=== PATIENT | male | born 1945 | race Caucasian/White ===

== ENCOUNTER → 2017-08-15 13:44 | Outpatient (CLI) | payer MEDICARE, OTHER, SELFPAY ==
[2017-08-15 14:02] LABS: Add Manual Diff / Slide Review NO; Eosinophils Percent Auto 3.7 % (2-4); Hematocrit 37.2 % (41-53); Hemoglobin 13.1 g/dL (13.5-17.5); Lymphocytes Percent Auto 20.4 % (25-40); Mean Corpuscular HGB Conc 35.2 % (30-36); Mean Corpuscular Hemoglobin 36.7 PG (26-34); Mean Corpuscular Volume 104.5 fL (80-100); Monocytes Percent Auto 13.9 % (3-14); Neutrophils Absolute Auto 2500 /uL (3000-5900); Platelet Count 98 X10^3/uL (150-400); Red Blood Cell Count 3.55 X10^6/uL (4.5-5.9); Red Cell Distribution Width 15.9 % (11.6-14.8); White Blood Cell Count 4.1 X10^3/uL (4.5-11.0)
[2017-08-15 14:28] LABS: Alanine Aminotransferase 39 IU/L (21-72); Albumin 2.5 g/dL (3.5-5.0); Albumin Globulin Ratio 0.5 (1.0-2.8); Alkaline Phosphatase 295 U/L (38-126); Aspartate Aminotransferase 102 IU/L (17-59); BUN Creatinine Ratio 27.8 (6-22); Bilirubin Total 2.7 mg/dL (0.2-1.3); Calcium 8.1 mg/dL (8.4-10.2); Estimated Glomerular Filt Rate > 60.0 mL/min (>60); Globulin 5.3 g/dL (1.7-4.1); Glucose 156 mg/dL (80-110); HEMOLYSIS < 15 (0-50); Potassium 4.5 mmol/L (3.4-5.1); Sodium 131 mmol/L (137-145); Total Protein 7.8 g/dL (6.3-8.2)
[2017-08-19 15:44] LABS: Alpha Fetoprotein 6.6 ng/mL (< 6.1)
[2017-08-19 16:00] LABS: Cancer (Carbohydrate) Ag 19-9 56 U/mL (< 34)
--- NOTE | 2017-08-22 13:21 | PC.NURSE ---
Pt called today c/o my belly is filling up with fluid again and I need it drained. Noted pt has appt with Dr Pope on 08/27, however pt states he can't wait until Friday. There isn't a standing order for paracentesis to be done. Pt states he needs it done today. Explained to patient that Dr Pope isn't here and he is the provider that is familiar with pt and has evaluated pt. Instructed pt that if he can't wait until Friday, he will need to go to ER if he becomes too uncomfortable. Verbalized understanding and states he will go to ER.
== END ==
PROVIDERS: PCP Physician Assistant; Visit Provider Internal Medicine Hematology & Oncology
DX: C22.0 Liver cell carcinoma (principal); B19.20 Unspecified viral hepatitis C without hepatic coma
CPT/HCPCS: 36415; 80053; 82105; 85025; 86301

== ENCOUNTER 2017-09-09 19:23 | Observation (INO) | payer MEDICARE, OTHER, SELFPAY ==
--- NOTE | 2017-09-09 19:36 | DI.CT.S_ITS ---
PROCEDURE: CT HEAD/BRAIN WO CON INDICATIONS: Dizzy and slurred speech TECHNIQUE: Noncontrast 4.5 mm thick angled axial sections acquired from the foramen magnum to the vertex, with coronal and sagittal reformats. For radiation dose reduction, the following was used: automated exposure control, adjustment of mA and/or kV according to patient size. COMPARISON: None. FINDINGS: Image quality: Excellent. CSF spaces: Basal cisterns are patent. No extra-axial fluid collections. The ventricles are symmetric in size and shape. Brain: No intracranial bleeds or masses. There is cerebral volume loss for age, with resultant ventricular and sulcal prominence. There are periventricular and deep white matter chronic small vessel ischemic changes. There is intracranial internal carotid artery atherosclerosis. Skull and face: Calvarium and visualized facial bones appear intact, without suspicious lesions. Sinuses: Visualized sinuses and mastoids are clear. IMPRESSION: A no mass identified, source of current symptoms is not seen. Dictated by: Michael Cheney M.D. on 09/09/2017 at 20:43 Approved by: Michael Cheney M.D. on 09/09/2017 at 20:43
[2017-09-09 19:47] VITALS: BP 101/57; PULSE 91; RESP 20; TEMP 37.2; O2SAT 95; BMI 22.1
--- NOTE | 2017-09-09 19:50 | ED.NEUROSD ---
HPI - Neuro Symptoms/Deficit General Chief Complaint: Neuro Symptoms/Deficit Stated Complaint: DIZZY,INCOHERENT,SOMETHING ABOUT A RED SPOT Time Seen by Provider: 09/09/17 19:35 Source: patient and other (Friend) Mode of arrival: ambulatory Limitations: no limitations History of Present Illness HPI Narrative: 72-year-old male with a history of hepatocellular carcinoma here for evaluation of ???dizziness??? patient cannot define it any more than this. He cannot distinguish whether not it is a room spinning sensation or lightheaded sensation. He seems to think that the onset was approximately 330 this afternoon however the friend at bedside thinks that maybe it was earlier than that. Was also some concern from the friend at bedside that the patient was ???slower ???than normal with regard to his speech. Patient is followed by a an oncologist at [facility]. Patient's friend states that the last time he took him to the [facility] was in March of last year. Patient states that he went down approximately a week ago. Difficult to obtain some history however patient states that he is taking lactulose 3 times a day. It does not appear that he is under any sort of chemotherapy or radiation for his cancer. Patient also with a history of hepatitis which led to the hepatocellular carcinoma. Does get occasional paracentesis with the last 1 performed approximately 7 days ago at [facility]. Patient and friend state that he does not get scheduled paracenteses. On Anticoagulants: No Related Data Home Medications Medication Instructions Recorded Confirmed furosemide 20 mg PO QDAY #0 07/21/17 spironolactone 100 mg PO QDAY #0 07/21/17 Previous Rx's Medication Instructions Recorded hydrocodone-acetaminophen 1 tab PO Q6HP PRN #120 tab 07/08/17 Disabled Parking Permit ea #1 07/21/17 omeprazole 20 mg PO Q DAY #90 cap 07/21/17 lactulose 10 gram/15 mL oral 10 gram PO QID #900 ml 09/09/17 solution Allergies Allergy/AdvReac Type Severity Reaction Status Date / Time Penicillins [PENICILLINS] Allergy Unknown PATIENT Verified 09/09/17 19:49 CAN'T REMEMBER I WAS LIKE 6 YEARS OLD. Review of Systems Constitutional Denies chills, Reports fatigue, Denies fever(s), Denies frequent falls, Denies headache(s), Reports lethargy and Reports weakness Eyes Comments: Patient does state that he has blurry vision and double vision however he also states that he has ???dizziness ??? ENT Ears, Nose, Mouth, and Throat: Denies vertigo, Reports dizziness, Denies headache(s), Denies hearing loss, Denies lip swelling, Denies sinus pressure and Denies sore throat Cardiovascular Denies chest pain, Denies irregular heart rhythm, Denies lightheadedness, Denies palpitations, Denies dyspnea, Denies dyspnea on exertion and Denies orthopnea Respiratory Denies cough, Denies dyspnea, Denies dyspnea on exertion and Denies wheezing Gastrointestinal Gastrointestinal: Denies abdominal pain, Denies change in bowel habits, Denies diarrhea, Denies nausea and Denies vomiting Genitourinary Denies hematuria, Denies flank pain, Denies urinary incontinence and Denies urinary urgency Musculoskeletal Denies abnormal gait, Denies back pain, Denies muscle weakness, Denies numbness and Denies tingling Integumentary/Breasts Denies pruritus, Denies erythema, Denies rash and Denies wounds Neurologic Denies abnormal movements, Reports abnormal speech, Denies abnormal gait, Denies confusion, Denies vertigo, Reports dizziness, Denies frequent falls, Denies headache(s), Denies lack of coordination, Denies numbness, Reports other visual disturbances, Denies convulsions, Denies sensory deficit, Denies tingling and Reports weakness Psychiatric Denies confusion Endocrine Reports fatigue and Denies palpitations Hematologic/Lymphatic Denies easy bruising Allergic/Immunologic Denies lip swelling and Denies wheezing [facility] Social History Smoking Status: Never smoker Exam Initial Vital Signs Initial Vital Signs: Vital Signs Temperature 99.0 F 09/09/17 19:47 Pulse Rate 91 H 09/09/17 19:47 Respiratory Rate 20 09/09/17 19:47 Blood Pressure 101/57 L 09/09/17 19:47 Pulse Oximetry 95 09/09/17 19:47 Const General: cooperative, comfortable and No in distress Nutritional Appearance: well nourished Orientation: alert, awake, oriented x3 and not confused HENMT Head: normocephalic and atraumatic Ears: external ears normal and TM's normal bilaterally Nose: external nose normal and No nasal discharge Face and sinus: sinuses nontender, face symmetric and No dry mucous membranes Mouth: oral mucosae normal and moist mucous membranes Teeth and gingiva: dentition normal Throat: tonsils normal and uvula midline Eyes General: appearance normal, both eyes and all related structures Eyelids: eyelids normal Conjunctivae: conjunctivae normal Sclera: sclerae normal Pupils: PERRL EOM: EOM intact bilaterally Resp Effort & Inspection: normal respiratory effort, able to speak in complete sentences, no respiratory distress and no use of accessory muscles Auscultation: clear to auscultation bilaterally, no rales, no rhonchi and no wheezes Cardio Rate: regular rate Rhythm: regular rhythm Heart Sounds: no click, no gallops, no murmurs and no rubs Pulses: normal peripheral pulses GI Palpation: soft, no hepatosplenomegaly, No firm, No guarding, No pulsatile mass, No tender and ascites Skin General: no rashes or lesions noted, No jaundice and No petechiae Neuro General: alert, awake, oriented x3, gait normal, moves all extremities, no focal motor deficits and CN's II-XI intact bilaterally Cranial Nerves: CN's II-XI intact bilaterally, PERRL and EOM intact bilaterally Speech: speech normal (However does answer questions slowly) Gait: normal gait (However is slow) Motor: muscle tone normal throughout, strength 5/5 throughout and no pronator drift Sensory Exam: no sensory deficits noted Extrem General: full ROM, no clubbing, cyanosis or edema, no pedal edema and no calf tenderness Psych Appearance: grossly normal Mental Status: mental status grossly normal Attitude: cooperative Course Orders Ordered: ED Orders 09/09/17 19:36 CT head/brain wo con Stat EKG-12 Lead Stat 09/09/17 19:40 Basic Metabolic Panel Stat Complete Blood Count AUTO DIFF Stat Hepatic (Liver) Panel Stat Lipase Stat Partial Thromboplastin Time Stat Prothrombin Time INR Stat Troponin I Stat 09/09/17 20:23 Ammonia (NH3) Stat Lactate (Lactic Acid) Stat 09/09/17 22:38 Consult to Physician Routine 09/10/17 06:00 Troponin I Stat Discontinued Medications Aspirin (Aspirin Chew) 324 mg PO NOW ONE Stop: 09/09/17 20:20 Last Admin: 09/09/17 20:33 Dose: 324 mg Sodium Chloride (Normal Saline 0.9%) 1,000 mls @ 500 mls/hr IV BOLUS ONE Stop: 09/09/17 21:59 Last Admin: 09/09/17 20:33 Dose: 500 mls/hr Vital Signs - 8 hr 09/09/17 19:47 Temperature 99.0 F Pulse Rate 91 H Respiratory Rate 20 Blood Pressure 101/57 L Pulse Oximetry 95 MDM - Neuro Symptoms/Deficit Medical Records Attestation: I reviewed the patient's medical records. Lab Data Attestation: I reviewed the patient's lab results. Result diagrams: 09/09/17 19:40 09/09/17 19:40 Lab Results 09/09/17 09/09/17 09/09/17 Range/Units 19:40 19:40 19:40 WBC 5.9 (4.5-11.0) X10^3/uL RBC 3.66 L (4.5-5.9) X10^6/uL Hgb 13.3 L (13.5-17.5) g/dL Hct 38.0 L (41-53) % MCV 103.9 H (80-100) fL MCH 36.4 H (26-34) PG MCHC 35.1 (30-36) % RDW 15.7 H (11.6-14.8) % Plt Count 104 L (150-400) X10^3/uL Neut % (Auto) 67.3 (50-75) % Lymph % (Auto) 14.4 L (25-40) % Troup % (Auto) 16.3 H (3-14) % Eos % (Auto) 1.0 L (2-4) % Baso % (Auto) 1.0 (0-2) % Neut # (Auto) 4000 (7717-1751) /uL PT 16.8 H (10.1-12.7) SECONDS INR 1.6 H (0.9-1.3) APTT 41 H (26.4-36.2) SECONDS Sodium 137 (137-145) mmol/L Potassium 4.3 (3.4-5.1) mmol/L Chloride 105 (98-107) mmol/L Carbon Dioxide 19 L (22-32) mmol/L BUN 52 H (9-20) mg/dL Creatinine 1.50 H (0.66-1.25) mg/dL Estimated GFR 46.1 L (>60) mL/min BUN/Creatinine Ratio 34.7 H (6-22) Glucose 132 H (80-110) mg/dL Lactate (0.7-2.1) mmol/L Calcium 8.7 (8.4-10.2) mg/dL Total Bilirubin 3.5 H (0.2-1.3) mg/dL Conjugated Bilirubin 0.0 (0.0-0.3) md/dL Unconjugated Bilirubin 2.2 H (0.0-1.1) mg/dL AST 96 H (17-59) IU/L ALT 45 (21-72) IU/L Alkaline Phosphatase 178 H (38-126) U/L Ammonia (9-30) umol/L Troponin I 0.053 H (0.01-0.034) ng/mL Total Protein 8.1 (6.3-8.2) g/dL Albumin 2.6 L (3.5-5.0) g/dL Globulin 5.5 H (1.7-4.1) g/dL Albumin/Globulin Ratio 0.5 L (1.0-2.8) Lipase 272 (23-300) U/L 09/09/17 09/09/17 Range/Units 20:23 20:23 WBC (4.5-11.0) X10^3/uL RBC (4.5-5.9) X10^6/uL Hgb (13.5-17.5) g/dL Hct (41-53) % MCV (80-100) fL MCH (26-34) PG MCHC (30-36) % RDW (11.6-14.8) % Plt Count (150-400) X10^3/uL Neut % (Auto) (50-75) % Lymph % (Auto) (25-40) % Troup % (Auto) (3-14) % Eos % (Auto) (2-4) % Baso % (Auto) (0-2) % Neut # (Auto) (3081-3903) /uL PT (10.1-12.7) SECONDS INR (0.9-1.3) APTT (26.4-36.2) SECONDS Sodium (137-145) mmol/L Potassium (3.4-5.1) mmol/L Chloride (98-107) mmol/L Carbon Dioxide (22-32) mmol/L BUN (9-20) mg/dL Creatinine (0.66-1.25) mg/dL Estimated GFR (>60) mL/min BUN/Creatinine Ratio (6-22) Glucose (80-110) mg/dL Lactate 2.8 H (0.7-2.1) mmol/L Calcium (8.4-10.2) mg/dL Total Bilirubin (0.2-1.3) mg/dL Conjugated Bilirubin (0.0-0.3) md/dL Unconjugated Bilirubin (0.0-1.1) mg/dL AST (17-59) IU/L ALT (21-72) IU/L Alkaline Phosphatase (38-126) U/L Ammonia 64.0 H (9-30) umol/L Troponin I (0.01-0.034) ng/mL Total Protein (6.3-8.2) g/dL Albumin (3.5-5.0) g/dL Globulin (1.7-4.1) g/dL Albumin/Globulin Ratio (1.0-2.8) Lipase (23-300) U/L Imaging Data CT scan - head: Radiologist's impression: PROCEDURE: CT HEAD/BRAIN WO CON INDICATIONS: Dizzy and slurred speech TECHNIQUE: Noncontrast 4.5 mm thick angled axial sections acquired from the foramen magnum to the vertex, with coronal and sagittal reformats. For radiation dose reduction, the following was used: automated exposure control, adjustment of mA and/or kV according to patient size. COMPARISON: None. FINDINGS: Image quality: Excellent. CSF spaces: Basal cisterns are patent. No extra-axial fluid collections. The ventricles are symmetric in size and shape. Brain: No intracranial bleeds or masses. There is cerebral volume loss for age, with resultant ventricular and sulcal prominence. There are periventricular and deep white matter chronic small vessel ischemic changes. There is intracranial internal carotid artery atherosclerosis. Skull and face: Calvarium and visualized facial bones appear intact, without suspicious lesions. Sinuses: Visualized sinuses and mastoids are clear. IMPRESSION: A no mass identified, source of current symptoms is not seen. Dictated by: Michael Cheney M.D. on 09/09/2017 at 20:43 ECG Data Attestation: I personally reviewed and interpreted this ECG as follows: Prior ECG tracings: not available for review Interpretation: Time 1941 hr Sinus rhythm Normal axis Ventricular rate 81 Normal QRS QTC 402 milliseconds Occasional PACs Nonspecific ST T wave changes MDM Narrative Medical decision making narrative: Patient with a elevated ammonia level however is alert and oriented to person and place however had some confusion with time. Does have a elevated troponin however no ST elevations on the EKG. Was given aspirin here in the emergency department. Patient states that he is taking his lactulose at home. And did take it today. In review of his prior notes it appears that he is not a candidate for treatment of his hepatocellular carcinoma. Is not currently under radiation or chemotherapy. Discussed the case with Dr. Keith who will admit for observation status for trending troponin. Discharge Plan Departure Patient Disposition: Admitted as Observation Clinical Impression: Hepatocellular carcinoma, Elevated troponin I level, Fatigue
--- NOTE | 2017-09-09 19:56 | PC.NURSE ---
Fatigue/confusion worsening over several days, family reports mulitple similar episodes in the past r/t liver failure, pt drowsy, rouses easily to voice, oriented x3, denies trauma/vomiting/diarrhea/headache/abd pain/cp/soa, c/o just tired, delayed speech, moving all ext, able to stand with sba, abd distended, nontender
[2017-09-09 19:57] LABS: Add Manual Diff / Slide Review NO; Hemoglobin 13.3 g/dL (13.5-17.5); Lymphocytes Percent Auto 14.4 % (25-40); Mean Corpuscular HGB Conc 35.1 % (30-36); Mean Corpuscular Hemoglobin 36.4 PG (26-34); Mean Corpuscular Volume 103.9 fL (80-100); Monocytes Percent Auto 16.3 % (3-14); Neutrophils Absolute Auto 4000 /uL (3000-5900); Neutrophils Percent Auto 67.3 % (50-75); Platelet Count 104 X10^3/uL (150-400); Red Blood Cell Count 3.66 X10^6/uL (4.5-5.9); Red Cell Distribution Width 15.7 % (11.6-14.8); White Blood Cell Count 5.9 X10^3/uL (4.5-11.0)
--- NOTE | 2017-09-09 19:57 | ED_ITS ---
HPI - Neuro Symptoms/Deficit General Chief Complaint: Neuro Symptoms/Deficit Stated Complaint: DIZZY,INCOHERENT,SOMETHING ABOUT A RED SPOT Time Seen by Provider: 09/09/17 19:35 Source: patient and other (Friend) Mode of arrival: ambulatory Limitations: no limitations History of Present Illness HPI Narrative: 72-year-old male with a history of hepatocellular carcinoma here for evaluation of ?dizziness? patient cannot define it any more than this. He cannot distinguish whether not it is a room spinning sensation or lightheaded sensation. He seems to think that the onset was approximately 330 this afternoon however the friend at bedside thinks that maybe it was earlier than that. Was also some concern from the friend at bedside that the patient was ? slower ?than normal with regard to his speech. [facility] Patient's friend states that the last time he took him to the [facility] was in March of last year. Patient states that he went down approximately a week ago. Difficult to obtain some history however patient states that he is taking lactulose 3 times a day. It does not appear that he is under any sort of chemotherapy or radiation for his cancer. Patient also with a history of hepatitis which led to the hepatocellular carcinoma. Does get occasional paracentesis with the last 1 performed approximately 7 days ago at [facility] Emergency Department. Patient and friend state that he does not get scheduled paracenteses. On Anticoagulants: No Related Data Home Medications Medication Instructions Recorded Confirmed furosemide 20 mg PO QDAY #0 07/21/17 spironolactone 100 mg PO QDAY #0 07/21/17 Previous Rx's Medication Instructions Recorded hydrocodone-acetaminophen 1 tab PO Q6HP PRN #120 tab 07/08/17 Disabled Parking Permit ea #1 07/21/17 omeprazole 20 mg PO Q DAY #90 cap 07/21/17 lactulose 10 gram/15 mL oral 10 gram PO QID #900 ml 09/09/17 solution Allergies Allergy/AdvReac Type Severity Reaction Status Date / Time Penicillins [PENICILLINS] Allergy Unknown PATIENT Verified 09/09/17 19:49 CAN'T REMEMBER I WAS LIKE 6 YEARS OLD. Review of Systems Constitutional Denies chills, Reports fatigue, Denies fever(s), Denies frequent falls, Denies headache(s), Reports lethargy and Reports weakness Eyes Comments: Patient does state that he has blurry vision and double vision however he also states that he has ?dizziness ? ENT Ears, Nose, Mouth, and Throat: Denies vertigo, Reports dizziness, Denies headache(s), Denies hearing loss, Denies lip swelling, Denies sinus pressure and Denies sore throat Cardiovascular Denies chest pain, Denies irregular heart rhythm, Denies lightheadedness, Denies palpitations, Denies dyspnea, Denies dyspnea on exertion and Denies orthopnea Respiratory Denies cough, Denies dyspnea, Denies dyspnea on exertion and Denies wheezing Gastrointestinal Gastrointestinal: Denies abdominal pain, Denies change in bowel habits, Denies diarrhea, Denies nausea and Denies vomiting Genitourinary Denies hematuria, Denies flank pain, Denies urinary incontinence and Denies urinary urgency Musculoskeletal Denies abnormal gait, Denies back pain, Denies muscle weakness, Denies numbness and Denies tingling Integumentary/Breasts Denies pruritus, Denies erythema, Denies rash and Denies wounds Neurologic Denies abnormal movements, Reports abnormal speech, Denies abnormal gait, Denies confusion, Denies vertigo, Reports dizziness, Denies frequent falls, Denies headache(s), Denies lack of coordination, Denies numbness, Reports other visual disturbances, Denies convulsions, Denies sensory deficit, Denies tingling and Reports weakness Psychiatric Denies confusion Endocrine Reports fatigue and Denies palpitations Hematologic/Lymphatic Denies easy bruising Allergic/Immunologic Denies lip swelling and Denies wheezing [facility] Social History Smoking Status: Never smoker Exam Initial Vital Signs Initial Vital Signs: Vital Signs Temperature 99.0 F 09/09/17 19:47 Pulse Rate 91 H 09/09/17 19:47 Respiratory Rate 20 09/09/17 19:47 Blood Pressure 101/57 L 09/09/17 19:47 Pulse Oximetry 95 09/09/17 19:47 Const General: cooperative, comfortable and No in distress Nutritional Appearance: well nourished Orientation: alert, awake, oriented x3 and not confused [facility] Head: normocephalic and atraumatic Ears: external ears normal and TM's normal bilaterally Nose: external nose normal and No nasal discharge Face and sinus: sinuses nontender, face symmetric and No dry mucous membranes Mouth: oral mucosae normal and moist mucous membranes Teeth and gingiva: dentition normal Throat: tonsils normal and uvula midline Eyes General: appearance normal, both eyes and all related structures Eyelids: eyelids normal Conjunctivae: conjunctivae normal Sclera: sclerae normal Pupils: PERRL EOM: EOM intact bilaterally Resp Effort & Inspection: normal respiratory effort, able to speak in complete sentences, no respiratory distress and no use of accessory muscles Auscultation: clear to auscultation bilaterally, no rales, no rhonchi and no wheezes Cardio Rate: regular rate Rhythm: regular rhythm Heart Sounds: no click, no gallops, no murmurs and no rubs Pulses: normal peripheral pulses GI Palpation: soft, no hepatosplenomegaly, No firm, No guarding, No pulsatile mass , No tender and ascites Skin General: no rashes or lesions noted, No jaundice and No petechiae Neuro General: alert, awake, oriented x3, gait normal, moves all extremities, no focal motor deficits and CN's II-XI intact bilaterally Cranial Nerves: CN's II-XI intact bilaterally, PERRL and EOM intact bilaterally Speech: speech normal (However does answer questions slowly) Gait: normal gait (However is slow) Motor: muscle tone normal throughout, strength 5/5 throughout and no pronator drift Sensory Exam: no sensory deficits noted Extrem General: full ROM, no clubbing, cyanosis or edema, no pedal edema and no calf tenderness Psych Appearance: grossly normal Mental Status: mental status grossly normal Attitude: cooperative Course Orders Ordered: ED Orders 09/09/17 19:36 CT head/brain wo con Stat EKG-12 Lead Stat 09/09/17 19:40 Basic Metabolic Panel Stat Complete Blood Count AUTO DIFF Stat Hepatic (Liver) Panel Stat Lipase Stat Partial Thromboplastin Time Stat Prothrombin Time INR Stat Troponin I Stat 09/09/17 20:23 Ammonia (NH3) Stat Lactate (Lactic Acid) Stat 09/09/17 22:38 Consult to Physician Routine 09/10/17 06:00 Troponin I Stat Discontinued Medications Aspirin (Aspirin Chew) 324 mg PO NOW ONE Stop: 09/09/17 20:20 Last Admin: 09/09/17 20:33 Dose: 324 mg Sodium Chloride (Normal Saline 0.9%) 1,000 mls @ 500 mls/hr IV BOLUS ONE Stop: 09/09/17 21:59 Last Admin: 09/09/17 20:33 Dose: 500 mls/hr Vital Signs - 8 hr 09/09/17 19:47 Temperature 99.0 F Pulse Rate 91 H Respiratory Rate 20 Blood Pressure 101/57 L Pulse Oximetry 95 MDM - Neuro Symptoms/Deficit Medical Records Attestation: I reviewed the patient's medical records. Lab Data Attestation: I reviewed the patient's lab results. Result diagrams: 09/09/17 19:40 09/09/17 19:40 Lab Results 09/09/17 09/09/17 09/09/17 Range/Units 19:40 19:40 19:40 WBC 5.9 (4.5-11.0) X10^3/uL RBC 3.66 L (4.5-5.9) X10^6/uL Hgb 13.3 L (13.5-17.5) g/dL Hct 38.0 L (41-53) % MCV 103.9 H (80-100) fL MCH 36.4 H (26-34) PG MCHC 35.1 (30-36) % RDW 15.7 H (11.6-14.8) % Plt Count 104 L (150-400) X10^3/uL Neut % (Auto) 67.3 (50-75) % Lymph % (Auto) 14.4 L (25-40) % [place] % (Auto) 16.3 H (3-14) % Eos % (Auto) 1.0 L (2-4) % Baso % (Auto) 1.0 (0-2) % Neut # (Auto) 4000 (3777-7754) /uL PT 16.8 H (10.1-12.7) SECONDS INR 1.6 H (0.9-1.3) APTT 41 H (26.4-36.2) SECONDS Sodium 137 (137-145) mmol/L Potassium 4.3 (3.4-5.1) mmol/L Chloride 105 (98-107) mmol/L Carbon Dioxide 19 L (22-32) mmol/L BUN 52 H (9-20) mg/dL Creatinine 1.50 H (0.66-1.25) mg/dL Estimated GFR 46.1 L (>60) mL/min BUN/Creatinine Ratio 34.7 H (6-22) Glucose 132 H (80-110) mg/dL Lactate (0.7-2.1) mmol/L Calcium 8.7 (8.4-10.2) mg/dL Total Bilirubin 3.5 H (0.2-1.3) mg/dL Conjugated Bilirubin 0.0 (0.0-0.3) md/dL Unconjugated Bilirubin 2.2 H (0.0-1.1) mg/dL AST 96 H (17-59) IU/L ALT 45 (21-72) IU/L Alkaline Phosphatase 178 H (38-126) U/L Ammonia (9-30) umol/L Troponin I 0.053 H (0.01-0.034) ng/mL Total Protein 8.1 (6.3-8.2) g/dL Albumin 2.6 L (3.5-5.0) g/dL Globulin 5.5 H (1.7-4.1) g/dL Albumin/Globulin Ratio 0.5 L (1.0-2.8) Lipase 272 (23-300) U/L 09/09/17 09/09/17 Range/Units 20:23 20:23 WBC (4.5-11.0) X10^3/uL RBC (4.5-5.9) X10^6/uL Hgb (13.5-17.5) g/dL Hct (41-53) % MCV (80-100) fL MCH (26-34) PG MCHC (30-36) % RDW (11.6-14.8) % Plt Count (150-400) X10^3/uL Neut % (Auto) (50-75) % Lymph % (Auto) (25-40) % [place] % (Auto) (3-14) % Eos % (Auto) (2-4) % Baso % (Auto) (0-2) % Neut # (Auto) (6430-4477) /uL PT (10.1-12.7) SECONDS INR (0.9-1.3) APTT (26.4-36.2) SECONDS Sodium (137-145) mmol/L Potassium (3.4-5.1) mmol/L Chloride (98-107) mmol/L Carbon Dioxide (22-32) mmol/L BUN (9-20) mg/dL Creatinine (0.66-1.25) mg/dL Estimated GFR (>60) mL/min BUN/Creatinine Ratio (6-22) Glucose (80-110) mg/dL Lactate 2.8 H (0.7-2.1) mmol/L Calcium (8.4-10.2) mg/dL Total Bilirubin (0.2-1.3) mg/dL Conjugated Bilirubin (0.0-0.3) md/dL Unconjugated Bilirubin (0.0-1.1) mg/dL AST (17-59) IU/L ALT (21-72) IU/L Alkaline Phosphatase (38-126) U/L Ammonia 64.0 H (9-30) umol/L Troponin I (0.01-0.034) ng/mL Total Protein (6.3-8.2) g/dL Albumin (3.5-5.0) g/dL Globulin (1.7-4.1) g/dL Albumin/Globulin Ratio (1.0-2.8) Lipase (23-300) U/L Imaging Data CT scan - head: Radiologist's impression: PROCEDURE: CT HEAD/BRAIN WO CON INDICATIONS: Dizzy and slurred speech TECHNIQUE: Noncontrast 4.5 mm thick angled axial sections acquired from the foramen magnum to the vertex, with coronal and sagittal reformats. For radiation dose reduction, the following was used: automated exposure control, adjustment of mA and/or kV according to patient size. COMPARISON: None. FINDINGS: Image quality: Excellent. CSF spaces: Basal cisterns are patent. No extra-axial fluid collections. The ventricles are symmetric in size and shape. Brain: No intracranial bleeds or masses. There is cerebral volume loss for age , with resultant ventricular and sulcal prominence. There are periventricular and deep white matter chronic small vessel ischemic changes. There is intracranial internal carotid artery atherosclerosis. Skull and face: Calvarium and visualized facial bones appear intact, without suspicious lesions. Sinuses: Visualized sinuses and mastoids are clear. IMPRESSION: A no mass identified, source of current symptoms is not seen. Dictated by: Michael Cheney M.D. on 09/09/2017 at 20:43 ECG Data Attestation: I personally reviewed and interpreted this ECG as follows: Prior ECG tracings: not available for review Interpretation: Time 1941 hr Sinus rhythm Normal axis Ventricular rate 81 Normal QRS QTC 402 milliseconds Occasional PACs Nonspecific ST T wave changes MDM Narrative Medical decision making narrative: Patient with a elevated ammonia level however is alert and oriented to person and place however had some confusion with time. Does have a elevated troponin however no ST elevations on the EKG. Was given aspirin here in the emergency department. Patient states that he is taking his lactulose at home. And did take it today. In review of his prior notes it appears that he is not a candidate for treatment of his hepatocellular carcinoma. Is not currently under radiation or chemotherapy. Discussed the case with Dr. Keith who will admit for observation status for trending troponin. Discharge Plan Departure Patient Disposition: Admitted as Observation Clinical Impression: Hepatocellular carcinoma, Elevated troponin I level, Fatigue
[2017-09-09 20:00] LABS: INR 1.6 (0.9-1.3); Prothrombin Time 16.8 SECONDS (10.1-12.7)
[2017-09-09 20:02] LABS: PTT Partial Thromboplastin Tim 41 SECONDS (26.4-36.2)
[2017-09-09 20:03] LABS: Alanine Aminotransferase 45 IU/L (21-72); Albumin 2.6 g/dL (3.5-5.0); Albumin Globulin Ratio 0.5 (1.0-2.8); Alkaline Phosphatase 178 U/L (38-126); Aspartate Aminotransferase 96 IU/L (17-59); BUN Creatinine Ratio 34.7 (6-22); Bilirubin Total 3.5 mg/dL (0.2-1.3); Bilirubin Unconjugated 2.2 mg/dL (0.0-1.1); Blood Urea Nitrogen 52 mg/dL (9-20); Calcium 8.7 mg/dL (8.4-10.2); Carbon Dioxide 19 mmol/L (22-32); Chloride 105 mmol/L (98-107); Estimated Glomerular Filt Rate 46.1 mL/min (>60); Globulin 5.5 g/dL (1.7-4.1); Glucose 132 mg/dL (80-110); HEMOLYSIS 15 (0-50); Lipase 272 U/L (23-300); Potassium 4.3 mmol/L (3.4-5.1); Sodium 137 mmol/L (137-145); Total Protein 8.1 g/dL (6.3-8.2)
[2017-09-09 20:14] LABS: Troponin I 0.053 ng/mL (0.01-0.034)
[2017-09-09] MEDS: ASPIRIN 81 MG TAB 324 MG PO (20:33)
[2017-09-09] MEDS: SODIUM CHLORIDE 0.9% 1,000 ML 500 ML IV (20:33)
[2017-09-09 20:38] LABS: Lactate (Lactic Acid) 2.8 mmol/L (0.7-2.1)
[2017-09-09 23:35] VITALS: BP 98/67; PULSE 71; RESP 18; O2SAT 98
[2017-09-10 00:18] VITALS: BP 99/64; PULSE 65; RESP 12
[2017-09-10 00:26] LABS: Reflexed Lactate in 2 Hours Y
[2017-09-10 00:44] VITALS: BMI 22.1
[2017-09-10 00:50] VITALS: BP 115/68; PULSE 74; RESP 15; TEMP 36.7; O2SAT 98
[2017-09-10 00:52] LABS: Lactate 2HR (Lactic Acid Rflx) 1.5 mmol/L (0.7-2.1)
[2017-09-10 04:51] VITALS: BP 120/71; PULSE 70; RESP 18; TEMP 36.7; O2SAT 98
--- NOTE | 2017-09-10 06:03 | PC.NURSE ---
Admit/ Shift note: Pt arrived at 0030, 3 pa to with slide board to transfer into bed. Pt denies pain, denies nausea and denies SOB. ABD is distended, bt are hyperactive. 2+ edema to ankles above the sock line. Pt has been somnolent, falling asleep during assessments. Pt is making shifts in position in bed independently.
[2017-09-10 06:34] LABS: Troponin I 0.052 ng/mL (0.01-0.034)
[2017-09-10 08:05] VITALS: BP 115/63; PULSE 78; RESP 16; TEMP 36.8; O2SAT 100
[2017-09-10] MEDS: LACTULOSE 20 GM/30 ML SOLUTION 10 GM PO ×2 (08:37→11:49)
--- NOTE | 2017-09-10 09:06 | P.HP_ITS ---
History of Present Illness Chief complaint: hepatocellular carcinoma/ elivated troponin Narrative: Marco Antonio Zamudio is a 72 year old male with history of hepatocellular carcinoma presented to the emergency department with complaints of dizziness. Onset was yesterday afternoon. He has not noticed any fevers, chills, cough, chest pain, abdominal pain, vomiting. He has been generally weak with poor appetite. He had paracentesis done at [facility] about a month ago. Patient's workup in the ER included head CT without acute findings, ammonia 64, intermediate value for troponin. Patient History Family & Social History Family History: Reviewed 09/10/17 by Rayshawn Lima MD Social History: household members none Prior Living Arrangements House Safety & Behavioral: Feels Safe in Current Yes Environment Been Physically Hurt or No Threatened By a Person Suicidal Ideation Description None Suicide Plan Description No Plan Tobacco & Substance use: Smoking Status Never smoker alcohol intake former Substance Use Type does not use Meds Home Medications Medication Instructions Recorded Confirmed Type hydrocodone-acetaminophen 1 tab PO Q6HP PRN #120 tab 07/08/17 Rx Disabled Parking Permit ea #1 07/21/17 Rx furosemide 20 mg PO QDAY #0 07/21/17 History omeprazole 20 mg PO Q DAY #90 cap 07/21/17 Rx spironolactone 100 mg PO QDAY #0 07/21/17 History lactulose 10 gram/15 mL oral 10 gram PO QID #900 ml 09/09/17 Rx solution Allergies Allergy/AdvReac Type Severity Reaction Status Date / Time Penicillins [PENICILLINS] Allergy Unknown PATIENT Verified 09/09/17 19:49 CAN'T REMEMBER I WAS LIKE 6 YEARS OLD. Review of Systems Review of Systems All systems reviewed & are unremarkable except as noted in HPI and below Exam Vital Signs (past 8 hours): Vital Signs - 8 hr 3 09/10/17 04:51 09/10/17 08:05 Temperature 98.1 F 98.2 F Pulse Rate 70 78 Respiratory Rate 18 16 Blood Pressure 120/71 115/63 Pulse Oximetry 98 100 Pulse Oximetry 100 Oxygen Delivery Method Room Air Oxygen Flow Rate 0 Narrative Exam Narrative: GENERAL: Alert, chronically ill-appearing male in no acute distress HEAD: Atraumatic. Normocephalic. EYES: Pupils equal, round and reactive. Extraocular motions intact. Mild scleral jaundice. OROPHARYNX: moist mucosa NECK: Trachea midline. No JVD or lymphadenopathy. CARDIOVASCULAR: Regular rate and rhythm without murmurs, gallops, or rubs. RESPIRATORY: Clear to auscultation bilaterally. GASTROINTESTINAL: Abdomen with mild to moderate ascites but soft and nontender. No palpable masses. EXTREMITIES: No pretibial edema. NEUROLOGICAL: Alert, well oriented, speech is intact, nonfocal weakness, no asterixis SKIN: warm, dry, no rash Objective Labs Result Diagrams: 09/09/17 19:40 09/09/17 19:40 Labs: Laboratory Results - last 24 hr 09/09/17 09/09/17 09/09/17 19:40 19:40 19:40 WBC 5.9 RBC 3.66 L Hgb 13.3 L Hct 38.0 L MCV 103.9 H MCH 36.4 H MCHC 35.1 RDW 15.7 H Plt Count 104 L Neut % (Auto) 67.3 Lymph % (Auto) 14.4 L [place] % (Auto) 16.3 H Eos % (Auto) 1.0 L Baso % (Auto) 1.0 Neut # (Auto) 4000 PT 16.8 H INR 1.6 H APTT 41 H Sodium 137 Potassium 4.3 Chloride 105 Carbon Dioxide 19 L BUN 52 H Creatinine 1.50 H Estimated GFR 46.1 L BUN/Creatinine Ratio 34.7 H Glucose 132 H Lactate Calcium 8.7 Total Bilirubin 3.5 H Conjugated Bilirubin 0.0 Unconjugated Bilirubin 2.2 H AST 96 H ALT 45 Alkaline Phosphatase 178 H Ammonia Troponin I 0.053 H Total Protein 8.1 Albumin 2.6 L Globulin 5.5 H Albumin/Globulin Ratio 0.5 L Lipase 272 09/09/17 09/09/17 09/10/17 20:23 20:23 00:35 WBC RBC Hgb Hct MCV MCH MCHC RDW Plt Count Neut % (Auto) Lymph % (Auto) [place] % (Auto) Eos % (Auto) Baso % (Auto) Neut # (Auto) PT INR APTT Sodium Potassium Chloride Carbon Dioxide BUN Creatinine Estimated GFR BUN/Creatinine Ratio Glucose Lactate 2.8 H 1.5 Calcium Total Bilirubin Conjugated Bilirubin Unconjugated Bilirubin AST ALT Alkaline Phosphatase Ammonia 64.0 H Troponin I Total Protein Albumin Globulin Albumin/Globulin Ratio Lipase 09/10/17 06:00 WBC RBC Hgb Hct MCV MCH MCHC RDW Plt Count Neut % (Auto) Lymph % (Auto) [place] % (Auto) Eos % (Auto) Baso % (Auto) Neut # (Auto) PT INR APTT Sodium Potassium Chloride Carbon Dioxide BUN Creatinine Estimated GFR BUN/Creatinine Ratio Glucose Lactate Calcium Total Bilirubin Conjugated Bilirubin Unconjugated Bilirubin AST ALT Alkaline Phosphatase Ammonia Troponin I 0.052 H Total Protein Albumin Globulin Albumin/Globulin Ratio Lipase EKG: Normal sinus rhythm, no acute findings Noncontrast head CT: No acute findings Assessment & Plan Plan: Plan: 1. Dizziness: Etiology unclear he may have been relatively dehydrated. Symptoms have resolved as of this morning. He had a good breakfast. Will have Physical therapy assess patient's balance and mobility prior to discharge. We are also arranging home health nurse and PT services since he is homebound and has generalized weakness and risk of fall. 2. Hepatocellular carcinoma: He is not getting active therapy. He is compliant with lactulose and having 4-5 bowel movements per day. No evidence of acute encephalopathy. He does not require therapeutic paracentesis at this time. 3. Disposition: Observation status. Discharge home today after assessed by physical therapy.
--- NOTE | 2017-09-10 09:15 | CM.DANOTE ---
Addendum entered by Maryjane Fitzpatrick LPN 09/10/17 11:56: PT still has not seen pt, will do so soon. Priyanka is picking up the walker regardless so that pt will have it when he needs it. [employer] 2018 for [employer] is given to Priyanka. [facility] is all set up and will go out tomorrow. Brochure to pt and Priyanka. Original Note: DCP: assessment: case received and spoke with Dr. Lima. He reports pt is ok for d/c home but he is very weak, lives alone and needs HH. He had just spoken with pt and his POA friend Priyanka Kwon ([place] [phone]) and said they were agreeable to same. Met then with pt and Priyanka. Introduced self and role. DCP template completed with info currently available. Pt is a 72 year old male who admitted last night just before midnight to care of hospitalist team. PCP: Francy WINKLER Payer: Medicare and [employer]...Observation status currently. Pt says he got very weak last night. Appears frail but baseline mobility has been independent mobility in his home without assistive device. Both Priyanka and pt wonder if a walker will be needed and, if so, Priyanka can pick one up at [facility] today. Spoke with Dr. Lima who agrees to order a PT eval before pt leaves. [facility] has been given the referral for HH RN/OT/PT/LEGAL ASSISTANT. Will be following. P: expect pt to go today. Priyanka is going back to work. She will come back during lunch time to take pt home.
--- NOTE | 2017-09-10 10:09 | PC.NURSE ---
Addendum entered by Alba Cerrato R.N. 09/10/17 11:59: MS/NEURO - while still responding slowly, pt is becoming more alert, spoke with and the PT eval is to be cancelled, pt has been discharged home with his POA, Maryjane spoke to pt and POA regarding home health to start tomorrow, caregiver will pharmacy picking technician a fww from [employer], pt req pain medication, given norco 5/325mg po x 1 tab for abd discomfort prior to dc, 10mg lactolose dose given before discharge to ensure that pt takes it now. Original Note: AM NOTE - awakens, friends arrived, pt responds, speech is delayed and speaking slowly, oriented to ER hospital, assist x 1 person up bed to bsc to void, unsteady and has been dizzy, voided and ret bed, with alarm set,positioned upright for breakfast and did take in some egg, juice this am, hr 70, ra 100%, bs dim,
[2017-09-10] MEDS: HYDROCODONE/ACET 5/325 TABLET 1 TAB PO (11:48)
== END 2017-09-10 12:30 | disposition home or self-care (01) ==
LOC: ED 22:38 → AC 23:54
PROVIDERS: Admitting Provider Internal Medicine; Emergency Provider Emergency Medicine; PCP Physician Assistant; Visit Provider Internal Medicine
CPT/HCPCS: 36415; 36591; 70450; 80048; 80076; 82140; 83605; 83690; 84484; 85025; 85610; 85730; 93005; 99283; 99291; G0378

== ENCOUNTER 2017-09-11 11:26 | Inpatient (IN) | payer MEDICARE, OTHER, SELFPAY ==
[2017-09-10 00:44] VITALS: BMI 22.1
[2017-09-11] VITALS (8 sets, daily range): BP systolic 137–162; BP diastolic 62–104; PULSE 83–96; RESP 15–20; TEMP 36.4–36.8; O2SAT 92–100; BMI 21.7
--- NOTE | 2017-09-11 11:30 | ED.NEUROSD ---
HPI - Neuro Symptoms/Deficit General Chief Complaint: Neuro Symptoms/Deficit Stated Complaint: CVA Time Seen by Provider: 09/11/17 11:29 Source: family and EMS Mode of arrival: EMS Limitations: altered mental status History of Present Illness HPI Narrative: Patient presents to the emergency department via EMS is a DNR with a history of lung and liver cancer. EMS was notified when family had seen him for at least 24 hr, call initially went out as ?unattended?, as family suspected he had passed however he was unresponsive and appears as if he has had a stroke. Remainder of history and review of systems is unobtainable Onset (ago): hour(s) Last Observed Normal: 23:59 Timing confirmed by: family member Location: speech, right arm, left leg and altered History of same: No Severity: severe Quality: weak and constant Relieving factors: none Exacerbating factors: none Related Data Home Medications Medication Instructions Recorded Confirmed furosemide 20 mg PO BIDAC #0 07/21/17 09/11/17 spironolactone 100 mg PO QDAY #0 07/21/17 09/11/17 cholecalciferol (vitamin D3) 1 tab PO DAILY 09/10/17 09/11/17 cyanocobalamin (vitamin B-12) 1 tab PO DAILY 09/10/17 09/11/17 hydrocodone-acetaminophen 1 tab PO Q6H PRN 09/11/17 09/11/17 Previous Rx's Medication Instructions Recorded omeprazole 20 mg PO Q DAY #90 cap 07/21/17 lactulose 10 gram/15 mL oral 10 gram PO QID #900 ml 09/09/17 solution Allergies Allergy/AdvReac Type Severity Reaction Status Date / Time Penicillins [PENICILLINS] Allergy Unknown PATIENT Verified 09/09/17 19:49 CAN'T REMEMBER I WAS LIKE 6 YEARS OLD. Review of Systems Review of Systems Patient does not participate in review of systems due to severity of medical condition [facility] Social History household members: none Smoking Status: Never smoker alcohol intake: former Exam Narrative Exam Narrative: 72M in severe distress, unresponsive. Maintaining airway Initial Vital Signs Initial Vital Signs: Vital Signs Temperature 97.6 F 09/11/17 11:30 Pulse Rate 90 09/11/17 11:30 Respiratory Rate 17 09/11/17 11:30 Blood Pressure 153/75 H 09/11/17 11:30 Pulse Oximetry 99 09/11/17 11:30 Const General: in distress and disheveled Nutritional Appearance: well nourished Orientation: obtunded Limitations: altered mental status HENMI Head: normal to inspection Nose: external nose normal Face and sinus: normal facial exam Mouth: mucous membranes abnormal Eyes Pupils: PERRL EOM: nystagmus (slow lateral nystagmus, no fast twitch) Resp Effort & Inspection: normal respiratory effort, able to speak in complete sentences, no respiratory distress and no use of accessory muscles Auscultation: clear to auscultation bilaterally, no rales, no rhonchi and no wheezes Cardio Rate: regular rate Rhythm: regular rhythm Heart Sounds: no click, no gallops, no murmurs and no rubs Pulses: normal peripheral pulses GI Inspection: non-distended Palpation: soft, no hepatosplenomegaly, No guarding, No pulsatile mass and No tender Auscultation: normal bowel sounds Back/Spine/Pelvis Back: No CVA tenderness Cervical Spine: cervical ROM normal and No pain with cervical ROM Thoracic/Lumbar Spine: thoracic and lumbar spine normal to inspection Neuro General: obtunded and unable to assess gait Cranial Nerves: nystagmus (slow lateral nystagmus, no fast twitch) Motor: strength abnormal Other: NIHSS 1A: 3 unresponsive 1B: 2 aphasic 1C: 2 performs zero tasks 2: 0 3: 3 no blink 4: 0 5A: 4 5B: 4 6A: 1 6B: 1 7: 0 8: 2 9: 3 10:0 11:0 Course Orders Ordered: ED Orders 09/11/17 11:30 EKG-12 Lead Stat 09/11/17 11:37 CT head/brain wo con Stat 09/11/17 11:52 Basic Metabolic Panel Stat Complete Blood Count AUTO DIFF Stat Partial Thromboplastin Time Stat Prothrombin Time INR Stat 09/11/17 12:13 Ammonia (NH3) Stat 09/11/17 12:55 Rapid Drug Screen, Urine Stat 09/11/17 13:20 XR abdomen 1V Stat 09/11/17 13:45 Urine Microscopic Stat 09/11/17 14:25 MRSA PCR Stat 09/11/17 14:34 Education, smoking cessation ONGOING 09/11/17 14:47 Consult to Dietitian, Adult Routine 09/12/17 05:00 Complete Blood Count AUTO DIFF Routine Comprehensive Metabolic Panel Routine 09/12/17 06:00 Ammonia (NH3) Routine Al Hydrox/Mg Hydrox/Simethicone (Maalox Plus) 30 ml PO Q6HR PRN PRN Reason: Dyspepsia Bisacodyl (Dulcolax) 10 mg [place] DAILY PRN PRN Reason: Constipation Sodium Chloride (Normal Saline 0.9%) 1,000 mls @ 150 mls/hr IV CONT [facility] Last Infusion: 09/11/17 15:27 Dose: 100 mls/hr Infusion: 09/11/17 13:59 Dose: 150 mls/hr Admin: 09/11/17 11:43 Dose: 150 mls/hr Sodium Chloride (Normal Saline 0.9%) 1,000 mls @ 100 mls/hr IV CONT JOSELUIS Lactulose (Enulose) 10 gm PO QID [facility] Last Admin: 09/11/17 16:22 Dose: 10 gm Ondansetron HCl (Zofran) 4 mg IV Q8HR PRN PRN Reason: Nausea And Vomiting Spironolactone (Aldactone) 50 mg PO DAILY [facility] Last Admin: 09/11/17 16:22 Dose: 50 mg Discontinued Medications Lactulose (Enulose) 20 gm PO NOW ONE Stop: 09/11/17 12:56 Last Admin: 09/11/17 13:41 Dose: 20 gm Reevaluation(s) Reevaluation #1: Is now been brought to my attention that the patient was just discharged yesterday after having been admitted the night prior for fatigue and elevated troponin Time: 12:00 Consultations Consultation #1: Dr. Keith happy to accept Vital Signs - 8 hr 09/11/17 11:30 09/11/17 12:00 09/11/17 13:09 Temperature 97.6 F Pulse Rate 90 85 92 H Respiratory Rate 17 17 15 Blood Pressure 153/75 H Blood Pressure [Left Arm] 141/66 H 162/62 H Pulse Oximetry 99 100 99 09/11/17 14:50 09/11/17 16:00 09/11/17 17:46 Temperature 98.3 F 98.2 F 97.8 F Pulse Rate 87 96 H 92 H Respiratory Rate 17 20 20 Blood Pressure 162/96 H 152/104 H 153/88 H Blood Pressure [Left Arm] Pulse Oximetry 97 98 MDM - Neuro Symptoms/Deficit Lab Data Result diagrams: 09/11/17 11:52 09/11/17 11:52 Lab Results 09/11/17 09/11/17 09/11/17 Range/Units 11:52 11:52 11:52 WBC 3.5 L (4.5-11.0) X10^3/uL RBC 3.62 L (4.5-5.9) X10^6/uL Hgb 13.2 L (13.5-17.5) g/dL Hct 37.7 L (41-53) % MCV 104.2 H (80-100) fL MCH 36.6 H (26-34) PG MCHC 35.1 (30-36) % RDW 15.5 H (11.6-14.8) % Plt Count 87 L (150-400) X10^3/uL Neut % (Auto) 70.4 (50-75) % Lymph % (Auto) 11.2 L (25-40) % [place] % (Auto) 17.3 H (3-14) % Eos % (Auto) 0.5 L (2-4) % Baso % (Auto) 0.6 (0-2) % Neut # (Auto) 2500 L (7336-8971) /uL PT 17.4 H (10.1-12.7) SECONDS INR 1.6 H (0.9-1.3) APTT 38 H D (26.4-36.2) SECONDS Sodium 137 (137-145) mmol/L Potassium 5.3 H (3.4-5.1) mmol/L Chloride 107 (98-107) mmol/L Carbon Dioxide 23 (22-32) mmol/L BUN 42 H (9-20) mg/dL Creatinine 1.20 (0.66-1.25) mg/dL Estimated GFR 59.7 L (>60) mL/min BUN/Creatinine Ratio 35.0 H (6-22) Glucose 149 H (80-110) mg/dL Calcium 8.6 (8.4-10.2) mg/dL Ammonia (9-30) umol/L Urine RBC (0-5/HPF) Urine WBC (0-5/HPF) Urine Bacteria (None) Ur Culture Indicated? Micro UA Comment Nasal Screen MRSA (PCR) (Negative) Urine Opiates Screen (Negative) Ur Oxycodone Screen (Negative) Urine Methadone Screen (Negative) Ur Barbiturates Screen (Negative) U Tricyclic Antidepress (Negative) Ur Phencyclidine Scrn (Negative) Ur Amphetamines Screen (Negative) U Methamphetamines Scrn (Negative) Ur MDMA Scrn (Ecstasy) (Negative) U Benzodiazepines Scrn (Negative) Urine Cocaine Screen (Negative) U Marijuana (THC) Screen (Negative) 09/11/17 09/11/17 09/11/17 Range/Units 12:13 12:55 13:45 WBC (4.5-11.0) X10^3/uL RBC (4.5-5.9) X10^6/uL Hgb (13.5-17.5) g/dL Hct (41-53) % MCV (80-100) fL MCH (26-34) PG MCHC (30-36) % RDW (11.6-14.8) % Plt Count (150-400) X10^3/uL Neut % (Auto) (50-75) % Lymph % (Auto) (25-40) % [place] % (Auto) (3-14) % Eos % (Auto) (2-4) % Baso % (Auto) (0-2) % Neut # (Auto) (2328-3116) /uL PT (10.1-12.7) SECONDS INR (0.9-1.3) APTT (26.4-36.2) SECONDS Sodium (137-145) mmol/L Potassium (3.4-5.1) mmol/L Chloride (98-107) mmol/L Carbon Dioxide (22-32) mmol/L BUN (9-20) mg/dL Creatinine (0.66-1.25) mg/dL Estimated GFR (>60) mL/min BUN/Creatinine Ratio (6-22) Glucose (80-110) mg/dL Calcium (8.4-10.2) mg/dL Ammonia 123.0 H (9-30) umol/L Urine RBC 5-10/hpf H (0-5/HPF) Urine WBC None seen (0-5/HPF) Urine Bacteria None seen (None) Ur Culture Indicated? Cult not indicated Micro UA Comment Not Reportable Nasal Screen MRSA (PCR) (Negative) Urine Opiates Screen Positive H (Negative) Ur Oxycodone Screen Negative (Negative) Urine Methadone Screen Negative (Negative) Ur Barbiturates Screen Negative (Negative) U Tricyclic Antidepress Negative (Negative) Ur Phencyclidine Scrn Negative (Negative) Ur Amphetamines Screen Negative (Negative) U Methamphetamines Scrn Negative (Negative) Ur MDMA Scrn (Ecstasy) Negative (Negative) U Benzodiazepines Scrn Negative (Negative) Urine Cocaine Screen Negative (Negative) U Marijuana (THC) Screen Negative (Negative) 09/11/17 Range/Units 14:25 WBC (4.5-11.0) X10^3/uL RBC (4.5-5.9) X10^6/uL Hgb (13.5-17.5) g/dL Hct (41-53) % MCV (80-100) fL MCH (26-34) PG MCHC (30-36) % RDW (11.6-14.8) % Plt Count (150-400) X10^3/uL Neut % (Auto) (50-75) % Lymph % (Auto) (25-40) % [place] % (Auto) (3-14) % Eos % (Auto) (2-4) % Baso % (Auto) (0-2) % Neut # (Auto) (8808-2226) /uL PT (10.1-12.7) SECONDS INR (0.9-1.3) APTT (26.4-36.2) SECONDS Sodium (137-145) mmol/L Potassium (3.4-5.1) mmol/L Chloride (98-107) mmol/L Carbon Dioxide (22-32) mmol/L BUN (9-20) mg/dL Creatinine (0.66-1.25) mg/dL Estimated GFR (>60) mL/min BUN/Creatinine Ratio (6-22) Glucose (80-110) mg/dL Calcium (8.4-10.2) mg/dL Ammonia (9-30) umol/L Urine RBC (0-5/HPF) Urine WBC (0-5/HPF) Urine Bacteria (None) Ur Culture Indicated? Micro UA Comment Nasal Screen MRSA (PCR) Negative for mrsa (Negative) Urine Opiates Screen (Negative) Ur Oxycodone Screen (Negative) Urine Methadone Screen (Negative) Ur Barbiturates Screen (Negative) U Tricyclic Antidepress (Negative) Ur Phencyclidine Scrn (Negative) Ur Amphetamines Screen (Negative) U Methamphetamines Scrn (Negative) Ur MDMA Scrn (Ecstasy) (Negative) U Benzodiazepines Scrn (Negative) Urine Cocaine Screen (Negative) U Marijuana (THC) Screen (Negative) Discharge Plan Departure Patient Disposition: Admitted As Inpatient Clinical Impression: Acute hepatic encephalopathy Discharge Date/Time: 09/11/17 14:06 Interventions: ED Discharge Assessment Last Done: 09/11/17 14:00 Admit Date/Time: 09/11/17 13:56 Admit Provider: Cornelio Keith
--- NOTE | 2017-09-11 11:37 | DI.CT.S_ITS ---
PROCEDURE: CT HEAD/BRAIN WO CON INDICATIONS: stroke NO TPA TECHNIQUE: Noncontrast 4.5 mm thick angled axial sections acquired from the foramen magnum to the vertex, with coronal and sagittal reformats. For radiation dose reduction, the following was used: automated exposure control, adjustment of mA and/or kV according to patient size. COMPARISON: [facility], CT, CT HEAD/BRAIN WO CON, 09/09/2017, 19:40. FINDINGS: Image quality: Excellent. CSF spaces: Basal cisterns are patent. No extra-axial fluid collections. The ventricles are symmetric in size and shape. Brain: No intracranial bleeds or masses. There is cerebral volume loss for age, with resultant ventricular and sulcal prominence. There are periventricular and deep white matter chronic small vessel ischemic changes. There is intracranial internal carotid artery atherosclerosis. Skull and face: Calvarium and visualized facial bones appear intact, without suspicious lesions. Sinuses: Visualized sinuses and mastoids are clear. IMPRESSION: No acute intracranial process. Evolving ischemic infarct cannot be excluded, MRI imaging advised if clinically indicated. Dictated by: Elie Sage M.D. on 09/11/2017 at 12:03 Approved by: Elie Sage M.D. on 09/11/2017 at 12:09
--- NOTE | 2017-09-11 11:40 | ED_ITS ---
HPI - Neuro Symptoms/Deficit General Chief Complaint: Neuro Symptoms/Deficit Stated Complaint: CVA Time Seen by Provider: 09/11/17 11:29 Source: family and EMS Mode of arrival: EMS Limitations: altered mental status History of Present Illness HPI Narrative: Patient presents to the emergency department via EMS is a DNR with a history of lung and liver cancer. EMS was notified when family had seen him for at least 24 hr, call initially went out as ?unattended?, as family suspected he had passed however he was unresponsive and appears as if he has had a stroke. Remainder of history and review of systems is unobtainable Onset (ago): hour(s) Last Observed Normal: 23:59 Timing confirmed by: family member Location: speech, right arm, left leg and altered History of same: No Severity: severe Quality: weak and constant Relieving factors: none Exacerbating factors: none Related Data Home Medications Medication Instructions Recorded Confirmed furosemide 20 mg PO BIDAC #0 07/21/17 09/11/17 spironolactone 100 mg PO QDAY #0 07/21/17 09/11/17 cholecalciferol (vitamin D3) 1 tab PO DAILY 09/10/17 09/11/17 cyanocobalamin (vitamin B-12) 1 tab PO DAILY 09/10/17 09/11/17 hydrocodone-acetaminophen 1 tab PO Q6H PRN 09/11/17 09/11/17 Previous Rx's Medication Instructions Recorded omeprazole 20 mg PO Q DAY #90 cap 07/21/17 lactulose 10 gram/15 mL oral 10 gram PO QID #900 ml 09/09/17 solution Allergies Allergy/AdvReac Type Severity Reaction Status Date / Time Penicillins [PENICILLINS] Allergy Unknown PATIENT Verified 09/09/17 19:49 CAN'T REMEMBER I WAS LIKE 6 YEARS OLD. Review of Systems Review of Systems Patient does not participate in review of systems due to severity of medical condition [facility] Social History household members: none Smoking Status: Never smoker alcohol intake: former Exam Narrative Exam Narrative: 72M in severe distress, unresponsive. Maintaining airway Initial Vital Signs Initial Vital Signs: Vital Signs Temperature 97.6 F 09/11/17 11:30 Pulse Rate 90 09/11/17 11:30 Respiratory Rate 17 09/11/17 11:30 Blood Pressure 153/75 H 09/11/17 11:30 Pulse Oximetry 99 09/11/17 11:30 Const General: in distress and disheveled Nutritional Appearance: well nourished Orientation: obtunded Limitations: altered mental status HENMI Head: normal to inspection Nose: external nose normal Face and sinus: normal facial exam Mouth: mucous membranes abnormal Eyes Pupils: PERRL EOM: nystagmus (slow lateral nystagmus, no fast twitch) Resp Effort & Inspection: normal respiratory effort, able to speak in complete sentences, no respiratory distress and no use of accessory muscles Auscultation: clear to auscultation bilaterally, no rales, no rhonchi and no wheezes Cardio Rate: regular rate Rhythm: regular rhythm Heart Sounds: no click, no gallops, no murmurs and no rubs Pulses: normal peripheral pulses GI Inspection: non-distended Palpation: soft, no hepatosplenomegaly, No guarding, No pulsatile mass and No tender Auscultation: normal bowel sounds Back/Spine/Pelvis Back: No CVA tenderness Cervical Spine: cervical ROM normal and No pain with cervical ROM Thoracic/Lumbar Spine: thoracic and lumbar spine normal to inspection Neuro General: obtunded and unable to assess gait Cranial Nerves: nystagmus (slow lateral nystagmus, no fast twitch) Motor: strength abnormal Other: NIHSS 1A: 3 unresponsive 1B: 2 aphasic 1C: 2 performs zero tasks 2: 0 3: 3 no blink 4: 0 5A: 4 5B: 4 6A: 1 6B: 1 7: 0 8: 2 9: 3 10:0 11:0 Course Orders Ordered: ED Orders 09/11/17 11:30 EKG-12 Lead Stat 09/11/17 11:37 CT head/brain wo con Stat 09/11/17 11:52 Basic Metabolic Panel Stat Complete Blood Count AUTO DIFF Stat Partial Thromboplastin Time Stat Prothrombin Time INR Stat 09/11/17 12:13 Ammonia (NH3) Stat 09/11/17 12:55 Rapid Drug Screen, Urine Stat 09/11/17 13:20 XR abdomen 1V Stat 09/11/17 13:45 Urine Microscopic Stat 09/11/17 14:25 MRSA PCR Stat 09/11/17 14:34 Education, smoking cessation ONGOING 09/11/17 14:47 Consult to Dietitian, Adult Routine 09/12/17 05:00 Complete Blood Count AUTO DIFF Routine Comprehensive Metabolic Panel Routine 09/12/17 06:00 Ammonia (NH3) Routine Al Hydrox/Mg Hydrox/Simethicone (Maalox Plus) 30 ml PO Q6HR PRN PRN Reason: Dyspepsia Bisacodyl (Dulcolax) 10 mg [place] DAILY PRN PRN Reason: Constipation Sodium Chloride (Normal Saline 0.9%) 1,000 mls @ 150 mls/hr IV CONT [facility] Last Infusion: 09/11/17 15:27 Dose: 100 mls/hr Infusion: 09/11/17 13:59 Dose: 150 mls/hr Admin: 09/11/17 11:43 Dose: 150 mls/hr Sodium Chloride (Normal Saline 0.9%) 1,000 mls @ 100 mls/hr IV CONT JOSELUIS Lactulose (Enulose) 10 gm PO QID [facility] Last Admin: 09/11/17 16:22 Dose: 10 gm Ondansetron HCl (Zofran) 4 mg IV Q8HR PRN PRN Reason: Nausea And Vomiting Spironolactone (Aldactone) 50 mg PO DAILY [facility] Last Admin: 09/11/17 16:22 Dose: 50 mg Discontinued Medications Lactulose (Enulose) 20 gm PO NOW ONE Stop: 09/11/17 12:56 Last Admin: 09/11/17 13:41 Dose: 20 gm Reevaluation(s) Reevaluation #1: Is now been brought to my attention that the patient was just discharged yesterday after having been admitted the night prior for fatigue and elevated troponin Time: 12:00 Consultations Consultation #1: Dr. Keith happy to accept Vital Signs - 8 hr 09/11/17 11:30 09/11/17 12:00 09/11/17 13:09 Temperature 97.6 F Pulse Rate 90 85 92 H Respiratory Rate 17 17 15 Blood Pressure 153/75 H Blood Pressure [Left Arm] 141/66 H 162/62 H Pulse Oximetry 99 100 99 09/11/17 14:50 09/11/17 16:00 09/11/17 17:46 Temperature 98.3 F 98.2 F 97.8 F Pulse Rate 87 96 H 92 H Respiratory Rate 17 20 20 Blood Pressure 162/96 H 152/104 H 153/88 H Blood Pressure [Left Arm] Pulse Oximetry 97 98 MDM - Neuro Symptoms/Deficit Lab Data Result diagrams: 09/11/17 11:52 09/11/17 11:52 Lab Results 09/11/17 09/11/17 09/11/17 Range/Units 11:52 11:52 11:52 WBC 3.5 L (4.5-11.0) X10^3/uL RBC 3.62 L (4.5-5.9) X10^6/uL Hgb 13.2 L (13.5-17.5) g/dL Hct 37.7 L (41-53) % MCV 104.2 H (80-100) fL MCH 36.6 H (26-34) PG MCHC 35.1 (30-36) % RDW 15.5 H (11.6-14.8) % Plt Count 87 L (150-400) X10^3/uL Neut % (Auto) 70.4 (50-75) % Lymph % (Auto) 11.2 L (25-40) % [place] % (Auto) 17.3 H (3-14) % Eos % (Auto) 0.5 L (2-4) % Baso % (Auto) 0.6 (0-2) % Neut # (Auto) 2500 L (4728-5621) /uL PT 17.4 H (10.1-12.7) SECONDS INR 1.6 H (0.9-1.3) APTT 38 H D (26.4-36.2) SECONDS Sodium 137 (137-145) mmol/L Potassium 5.3 H (3.4-5.1) mmol/L Chloride 107 (98-107) mmol/L Carbon Dioxide 23 (22-32) mmol/L BUN 42 H (9-20) mg/dL Creatinine 1.20 (0.66-1.25) mg/dL Estimated GFR 59.7 L (>60) mL/min BUN/Creatinine Ratio 35.0 H (6-22) Glucose 149 H (80-110) mg/dL Calcium 8.6 (8.4-10.2) mg/dL Ammonia (9-30) umol/L Urine RBC (0-5/HPF) Urine WBC (0-5/HPF) Urine Bacteria (None) Ur Culture Indicated? Micro UA Comment Nasal Screen MRSA (PCR) (Negative) Urine Opiates Screen (Negative) Ur Oxycodone Screen (Negative) Urine Methadone Screen (Negative) Ur Barbiturates Screen (Negative) U Tricyclic Antidepress (Negative) Ur Phencyclidine Scrn (Negative) Ur Amphetamines Screen (Negative) U Methamphetamines Scrn (Negative) Ur MDMA Scrn (Ecstasy) (Negative) U Benzodiazepines Scrn (Negative) Urine Cocaine Screen (Negative) U Marijuana (THC) Screen (Negative) 09/11/17 09/11/17 09/11/17 Range/Units 12:13 12:55 13:45 WBC (4.5-11.0) X10^3/uL RBC (4.5-5.9) X10^6/uL Hgb (13.5-17.5) g/dL Hct (41-53) % MCV (80-100) fL MCH (26-34) PG MCHC (30-36) % RDW (11.6-14.8) % Plt Count (150-400) X10^3/uL Neut % (Auto) (50-75) % Lymph % (Auto) (25-40) % [place] % (Auto) (3-14) % Eos % (Auto) (2-4) % Baso % (Auto) (0-2) % Neut # (Auto) (7367-9195) /uL PT (10.1-12.7) SECONDS INR (0.9-1.3) APTT (26.4-36.2) SECONDS Sodium (137-145) mmol/L Potassium (3.4-5.1) mmol/L Chloride (98-107) mmol/L Carbon Dioxide (22-32) mmol/L BUN (9-20) mg/dL Creatinine (0.66-1.25) mg/dL Estimated GFR (>60) mL/min BUN/Creatinine Ratio (6-22) Glucose (80-110) mg/dL Calcium (8.4-10.2) mg/dL Ammonia 123.0 H (9-30) umol/L Urine RBC 5-10/hpf H (0-5/HPF) Urine WBC None seen (0-5/HPF) Urine Bacteria None seen (None) Ur Culture Indicated? Cult not indicated Micro UA Comment Not Reportable Nasal Screen MRSA (PCR) (Negative) Urine Opiates Screen Positive H (Negative) Ur Oxycodone Screen Negative (Negative) Urine Methadone Screen Negative (Negative) Ur Barbiturates Screen Negative (Negative) U Tricyclic Antidepress Negative (Negative) Ur Phencyclidine Scrn Negative (Negative) Ur Amphetamines Screen Negative (Negative) U Methamphetamines Scrn Negative (Negative) Ur MDMA Scrn (Ecstasy) Negative (Negative) U Benzodiazepines Scrn Negative (Negative) Urine Cocaine Screen Negative (Negative) U Marijuana (THC) Screen Negative (Negative) 09/11/17 Range/Units 14:25 WBC (4.5-11.0) X10^3/uL RBC (4.5-5.9) X10^6/uL Hgb (13.5-17.5) g/dL Hct (41-53) % MCV (80-100) fL MCH (26-34) PG MCHC (30-36) % RDW (11.6-14.8) % Plt Count (150-400) X10^3/uL Neut % (Auto) (50-75) % Lymph % (Auto) (25-40) % [place] % (Auto) (3-14) % Eos % (Auto) (2-4) % Baso % (Auto) (0-2) % Neut # (Auto) (5932-8330) /uL PT (10.1-12.7) SECONDS INR (0.9-1.3) APTT (26.4-36.2) SECONDS Sodium (137-145) mmol/L Potassium (3.4-5.1) mmol/L Chloride (98-107) mmol/L Carbon Dioxide (22-32) mmol/L BUN (9-20) mg/dL Creatinine (0.66-1.25) mg/dL Estimated GFR (>60) mL/min BUN/Creatinine Ratio (6-22) Glucose (80-110) mg/dL Calcium (8.4-10.2) mg/dL Ammonia (9-30) umol/L Urine RBC (0-5/HPF) Urine WBC (0-5/HPF) Urine Bacteria (None) Ur Culture Indicated? Micro UA Comment Nasal Screen MRSA (PCR) Negative for mrsa (Negative) Urine Opiates Screen (Negative) Ur Oxycodone Screen (Negative) Urine Methadone Screen (Negative) Ur Barbiturates Screen (Negative) U Tricyclic Antidepress (Negative) Ur Phencyclidine Scrn (Negative) Ur Amphetamines Screen (Negative) U Methamphetamines Scrn (Negative) Ur MDMA Scrn (Ecstasy) (Negative) U Benzodiazepines Scrn (Negative) Urine Cocaine Screen (Negative) U Marijuana (THC) Screen (Negative) Discharge Plan Departure Patient Disposition: Admitted As Inpatient Clinical Impression: Acute hepatic encephalopathy Discharge Date/Time: 09/11/17 14:06 Interventions: ED Discharge Assessment Last Done: 09/11/17 14:00 Admit Date/Time: 09/11/17 13:56 Admit Provider: Cornelio Keith
[2017-09-11] MEDS: SODIUM CHLORIDE 0.9% 1,000 ML 150 ML IV (11:43)
[2017-09-11 12:02] LABS: Add Manual Diff / Slide Review NO; Basophils Percent Auto 0.6 % (0-2); Eosinophils Percent Auto 0.5 % (2-4); Hematocrit 37.7 % (41-53); Hemoglobin 13.2 g/dL (13.5-17.5); Lymphocytes Percent Auto 11.2 % (25-40); Mean Corpuscular HGB Conc 35.1 % (30-36); Mean Corpuscular Hemoglobin 36.6 PG (26-34); Mean Corpuscular Volume 104.2 fL (80-100); Monocytes Percent Auto 17.3 % (3-14); Neutrophils Absolute Auto 2500 /uL (3000-5900); Neutrophils Percent Auto 70.4 % (50-75); Platelet Count 87 X10^3/uL (150-400); Red Blood Cell Count 3.62 X10^6/uL (4.5-5.9); Red Cell Distribution Width 15.5 % (11.6-14.8); White Blood Cell Count 3.5 X10^3/uL (4.5-11.0)
[2017-09-11 12:09] LABS: INR 1.6 (0.9-1.3); Prothrombin Time 17.4 SECONDS (10.1-12.7)
[2017-09-11 12:12] LABS: PTT Partial Thromboplastin Tim 38 SECONDS (26.4-36.2)
[2017-09-11 12:15] LABS: Blood Urea Nitrogen 42 mg/dL (9-20); Calcium 8.6 mg/dL (8.4-10.2); Carbon Dioxide 23 mmol/L (22-32); Chloride 107 mmol/L (98-107); Estimated Glomerular Filt Rate 59.7 mL/min (>60); Glucose 149 mg/dL (80-110); HEMOLYSIS < 15 (0-50); Potassium 5.3 mmol/L (3.4-5.1); Sodium 137 mmol/L (137-145)
--- NOTE | 2017-09-11 12:23 | PC.NURSE ---
Suspect PT is aspirating secretions. Repositioned head and appears to be improved.
[2017-09-11 13:08] LABS: Urine Amphetamines Negative (Negative); Urine Barbiturates Negative (Negative); Urine Benzodiazepines Negative (Negative); Urine Cocaine Negative (Negative); Urine MDMA Negative (Negative); Urine Methadone Negative (Negative); Urine Methamphetamines Negative (Negative); Urine Morphine/Opi cutoff 2000 Positive (Negative); Urine Oxycodone Negative (Negative); Urine Phencyclidine Negative (Negative); Urine Tetrahydrocannabinol Negative (Negative); Urine Tricyclic Antidepressant Negative (Negative)
--- NOTE | 2017-09-11 13:20 | DI.RAD.S_ITS ---
PROCEDURE: XR ABDOMEN 1V INDICATIONS: nasal gastric placement TECHNIQUE: One view of the abdomen acquired. COMPARISON: None. FINDINGS: Surgical changes and devices: Image centered over the diaphragm shows a nasogastric tube with tip coiled in the stomach. Bowel: Bowel gas pattern is normal. Soft tissues: No suspicious abdominal calcifications. Visualized solid organ contours appear normal in size. Bones: No suspicious bony lesions. Lumbar rotoscoliosis. IMPRESSION: Nasogastric tube placement appears to be in the expected location. Dictated by: Elie Sage M.D. on 09/11/2017 at 13:38 Approved by: Elie Sage M.D. on 09/11/2017 at 13:39
[2017-09-11] MEDS: LACTULOSE 20 GM/30 ML SOLUTION PO (13:41)
[2017-09-11 13:48] LABS: Bacteria Urine None Seen; WBC Urine None Seen (0-5/HPF)
[2017-09-11 14:14] LABS: Culture Indicated Urine Cult Not Indicated; RBC Urine 5-10/HPF (0-5/HPF)
--- NOTE | 2017-09-11 14:47 | P.HP_ITS ---
History of Present Illness Chief complaint: CVA Narrative: Marco Antonio Zamudio is a 72 year old male who was discharged yesterday from this hospital after an observation stay for mildly elevated troponin. He was doing well yesterday when he was discharged back home but he returns today via ambulance being unresponsive and noted to have an elevated ammonia level of over 120 here in the emergency department this afternoon. Initially thought to have either had a stroke he was obtunded and unable to give a history CT scan was unremarkable and did not seem to have any lateralizing neurologic deficits but just decreased level of consciousness and unresponsive to this beach and verbal stimuli. He does have a history of hepatocellular carcinoma and is DNR Patient History Family & Social History Social History: household members none Tobacco & Substance use: Smoking Status Never smoker alcohol intake former Substance Use Type does not use Meds Home Medications Medication Instructions Recorded Confirmed Type furosemide 20 mg PO BIDAC #0 07/21/17 09/11/17 History omeprazole 20 mg PO Q DAY #90 cap 07/21/17 09/11/17 Rx spironolactone 100 mg PO QDAY #0 07/21/17 09/11/17 History lactulose 10 gram/15 mL oral 10 gram PO QID #900 ml 09/09/17 09/11/17 Rx solution cholecalciferol (vitamin D3) 1 tab PO DAILY 09/10/17 09/11/17 History cyanocobalamin (vitamin B-12) 1 tab PO DAILY 09/10/17 09/11/17 History hydrocodone-acetaminophen 1 tab PO Q6H PRN 09/11/17 09/11/17 History Allergies Allergy/AdvReac Type Severity Reaction Status Date / Time Penicillins [PENICILLINS] Allergy Unknown PATIENT Verified 09/09/17 19:49 CAN'T REMEMBER I WAS LIKE 6 YEARS OLD. Review of Systems Review of Systems unobtainable due to mental status Exam Vital Signs (past 8 hours): Vital Signs - 8 hr 3 09/11/17 11:30 09/11/17 12:00 09/11/17 13:09 Temperature 97.6 F Pulse Rate 90 85 92 H Respiratory Rate 17 17 15 Blood Pressure 153/75 H Blood Pressure [Left Arm] 141/66 H 162/62 H Pulse Oximetry 99 100 99 Pulse Oximetry 99 Oxygen Delivery Method Room Air Narrative Exam Narrative: His eyes are open but does not respond to verbal commands does not really follow or respond to any stimuli verbally. Oropharynx dry mucosa Lungs are clear Heart regular rhythm Abdomen distended ascites present Extremities 1+ edema Skin warm and dry Neuro exam he attended unresponsive to verbal commands will open his eyes does not follow commands class scalp coma scale 10 Objective Labs Result Diagrams: 09/11/17 11:52 09/11/17 11:52 Labs: Laboratory Results - last 24 hr 09/11/17 09/11/17 09/11/17 11:52 11:52 11:52 WBC 3.5 L RBC 3.62 L Hgb 13.2 L Hct 37.7 L MCV 104.2 H MCH 36.6 H MCHC 35.1 RDW 15.5 H Plt Count 87 L Neut % (Auto) 70.4 Lymph % (Auto) 11.2 L [place] % (Auto) 17.3 H Eos % (Auto) 0.5 L Baso % (Auto) 0.6 Neut # (Auto) 2500 L PT 17.4 H INR 1.6 H APTT 38 H D Sodium 137 Potassium 5.3 H Chloride 107 Carbon Dioxide 23 BUN 42 H Creatinine 1.20 Estimated GFR 59.7 L BUN/Creatinine Ratio 35.0 H Glucose 149 H Calcium 8.6 Ammonia Urine RBC Urine WBC Urine Bacteria Ur Culture Indicated? Micro UA Comment Urine Opiates Screen Ur Oxycodone Screen Urine Methadone Screen Ur Barbiturates Screen U Tricyclic Antidepress Ur Phencyclidine Scrn Ur Amphetamines Screen U Methamphetamines Scrn Ur MDMA Scrn (Ecstasy) U Benzodiazepines Scrn Urine Cocaine Screen U Marijuana (THC) Screen 09/11/17 09/11/17 09/11/17 12:13 12:55 13:45 WBC RBC Hgb Hct MCV MCH MCHC RDW Plt Count Neut % (Auto) Lymph % (Auto) [place] % (Auto) Eos % (Auto) Baso % (Auto) Neut # (Auto) PT INR APTT Sodium Potassium Chloride Carbon Dioxide BUN Creatinine Estimated GFR BUN/Creatinine Ratio Glucose Calcium Ammonia 123.0 H Urine RBC 5-10/hpf H Urine WBC None seen Urine Bacteria None seen Ur Culture Indicated? Cult not indicated Micro UA Comment Not Reportable Urine Opiates Screen Positive H Ur Oxycodone Screen Negative Urine Methadone Screen Negative Ur Barbiturates Screen Negative U Tricyclic Antidepress Negative Ur Phencyclidine Scrn Negative Ur Amphetamines Screen Negative U Methamphetamines Scrn Negative Ur MDMA Scrn (Ecstasy) Negative U Benzodiazepines Scrn Negative Urine Cocaine Screen Negative U Marijuana (THC) Screen Negative Assessment & Plan Plan: Plan: One. Acute hepatic encephalopathy uncertain etiology he does have urine tox screen positive for opiates which he is prescribed been hydrocodone at home. We do not have a great history of exactly what happened and he was possibly taking more that then prescribed or possibly had not been taking his lactulose and not certain yet. He got a dose of lactulose per the NG tube in the ER will continue with lactulose either orally or per NG until it has an affect. Does not appear to have any underlying infection at this point we will monitor carefully for fever or white count. 2. Hepatocellular carcinoma metastatic and patient has been DNR. 3. Disposition inpatient status appropriate for this patient 4. History of hypertension was recently taken off lisinopril and amlodipine when he was here in the hospital. Will watch his blood pressure continue the spironolactone for his ascites for now Scores GCS [place] coma scale eye opening: To sound [place] coma scale verbal response: Sounds [place] coma scale motor response: Localising [place] coma scale total score: 10
--- NOTE | 2017-09-11 15:16 | PC.ADMIT ---
[id number] [facility] Admission Note: The patient,Marco Antonio Zamudio,72 y/o, was given written information regarding hospital policies, unit procedures and contact persons. Patient's smoking status: Never smoker. Vital Signs - 8 hr 09/11/17 11:30 09/11/17 12:00 09/11/17 13:09 Temperature 97.6 F Pulse Rate 90 85 92 H Respiratory Rate 17 17 15 Blood Pressure 153/75 H Blood Pressure [Left Arm] 141/66 H 162/62 H Pulse Oximetry 99 100 99 09/11/17 14:50 Temperature 98.3 F Pulse Rate 87 Respiratory Rate 17 Blood Pressure 162/96 H Blood Pressure [Left Arm] Pulse Oximetry 97 Arrived to 104 via stretcher at 1305. Transferred via slider board. Not following commands, not tracking with eyes, occ. opens. Does initiate movement, repositioning self in bed. NG tube in place. Suctioned blood tinged secretions from oral cavity. Bed alarm is on and belongings in closet.
[2017-09-11] MEDS: LACTULOSE 20 GM/30 ML SOLUTION 10 GM PO ×2 (16:22→20:16)
[2017-09-11] MEDS: SPIRONOLACTONE 50 MG TABLET PO (16:22)
--- NOTE | 2017-09-11 17:58 | PC.NURSE ---
1745 - Patient transferred to room 230. Report given to receiving RN. Patient left 104 in good condition with all belongings
[2017-09-11] MEDS: SODIUM CHLORIDE 0.9% 1,000 ML 100 ML IV (20:18)
[2017-09-11] MEDS: ONDANSETRON 4 MG/2 ML INJ IV (20:45)
--- NOTE | 2017-09-11 23:28 | PC.NURSE ---
1700 pt nose bleeding on side with NGT. Repositioned tube and cleaned pt. Remains drowsy and intermittently opens eyes 1900 Nose still bleeding. MD notified and verbal order to d/c NGT after last dose of lactulose.
[2017-09-12 04:00] VITALS: BP 108/51; PULSE 73; RESP 18; TEMP 36.4; O2SAT 97
[2017-09-12 05:39] LABS: Add Manual Diff / Slide Review NO; Basophils Percent Auto 0.5 % (0-2); Eosinophils Percent Auto 0.9 % (2-4); Hematocrit 33.1 % (41-53); Hemoglobin 11.7 g/dL (13.5-17.5); Mean Corpuscular HGB Conc 35.4 % (30-36); Mean Corpuscular Hemoglobin 37.4 PG (26-34); Mean Corpuscular Volume 105.6 fL (80-100); Monocytes Percent Auto 15.4 % (3-14); Neutrophils Absolute Auto 3600 /uL (3000-5900); Neutrophils Percent Auto 72.2 % (50-75); Platelet Count 72 X10^3/uL (150-400); Red Blood Cell Count 3.14 X10^6/uL (4.5-5.9); Red Cell Distribution Width 15.5 % (11.6-14.8)
[2017-09-12 05:41] LABS: Alanine Aminotransferase 47 IU/L (21-72); Albumin 2.1 g/dL (3.5-5.0); Albumin Globulin Ratio 0.4 (1.0-2.8); Alkaline Phosphatase 167 U/L (38-126); Aspartate Aminotransferase 102 IU/L (17-59); BUN Creatinine Ratio 37.8 (6-22); Bilirubin Total 3.5 mg/dL (0.2-1.3); Blood Urea Nitrogen 34 mg/dL (9-20); Calcium 8.1 mg/dL (8.4-10.2); Carbon Dioxide 21 mmol/L (22-32); Chloride 112 mmol/L (98-107); Estimated Glomerular Filt Rate > 60.0 mL/min (>60); Globulin 5.2 g/dL (1.7-4.1); Glucose 124 mg/dL (80-110); HEMOLYSIS < 15 (0-50); Potassium 5.1 mmol/L (3.4-5.1); Sodium 140 mmol/L (137-145); Total Protein 7.3 g/dL (6.3-8.2)
[2017-09-12] MEDS: SODIUM CHLORIDE 0.9% 1,000 ML 100 ML IV (06:48)
[2017-09-12 07:45] VITALS: BP 130/64; PULSE 82; RESP 16; TEMP 36.9; O2SAT 99
[2017-09-12] MEDS: LACTULOSE 20 GM/30 ML SOLUTION 10 GM PO ×4 (08:57→21:19)
[2017-09-12] MEDS: SPIRONOLACTONE 50 MG TABLET PO (08:57)
--- NOTE | 2017-09-12 09:51 | CM.DANOTE ---
Addendum entered by Maryjane Fitzpatrick LPN 09/12/17 13:20: Spoke with Priyanka when she arrived. She reports that she did get to talk with Dr. Keith and that he indicated pt might d/c tomorrow. She is aware that if this occurs pt will have not met the Medicare snf requirements. Discussed with Dr. Keith who says he will not be certain that pt is ready to d/c tomorrow until he has seen him at this time. PT is seeing pt today. OT order has been obtained. P: at this point: [facility] has the referral. [facility] is reviewing. if pt does d/c tomorrow Priyanka intends to take him home and figure something out. She has the resource information that was discussed with her on the d/c of 09/10. She understands that he should not be alone. Rhoda ROJAS orders could be resumed. DCPlanner to follow up with Priyanka and pt tomorrow. Original Note: DCP: assessment: case received, EMR reviewed, checked in on pt (noted on BSC with nursing assist) and called POA: Priyanka Kwon. [phone] Priyanka confirms she took pt home from on 09/10, checked on him 09/11 and found him on the floor by his bed. Called 911. Pt is a 72 year old male who lives alone, is watched over closely by Priyanka and her mother. Carries dx of hepatic cancer. Inpt admission status, confirmed by Dr. Keith, pending UR internal review and audit compliance. Payer: Medicare and [employer]. PCP: Francy Duong was to open pt to service on 09/11. Per Priyanka's request, have notified them now that he is in the hospital. Priyanka will be here on her lunch hour 11-1200 and hopes to get update from physican (Dr. Keith). Will alert him to same. P: at this point Priyanka is aware that pt cannot manage anymore at home by himself. She is in process of reseaching his finances to help in consideration of options for fci planning. For short term: snf stay under Medicare is likely....discussion re same will unfold with Priyanka, pt and dc planning staff as more is known.
--- NOTE | 2017-09-12 09:52 | PC.NURSE ---
Marco Antonio is alert this AM. He states he has no memory of yesterday or why he is in hospital, but he is oriented to self, date and place. He states he has mild pain in his stomach, like cramps, when he has to poop. Otherwise denies pain. Weak and disheveled appearance. His abd. is very hard and distended. He is having lactulose associated diarrhea.
--- NOTE | 2017-09-12 10:12 | PM.PN.1 ---
Subjective Date Patient Seen: 09/12/17 Time Patient Seen: 10:12 Interval history: Feeling better this morning no memory of events from yesterday Exam Vital Signs (past 8 hours): Vital Signs - 8 hr 09/12/17 04:00 09/12/17 07:45 Temperature 97.5 F L 98.4 F Pulse Rate 73 82 Respiratory Rate 18 16 Blood Pressure 108/51 L 130/64 H Pulse Oximetry 97 99 Pulse Oximetry 99 Oxygen Delivery Method Room Air Narrative Exam Narrative: Somewhat dishevelled he is awake and oriented today but no her memory of what happened yesterday. He states that he has been taking his I lactulose regularly and did not take too much of the hydrocodone. Oropharynx clear Lungs clear Heart regular rhythm Abdomen mildly distended Extremities 1+ edema Skin warm and dry Neuro exam awake alert oriented no focal deficits Objective Labs Result Diagrams: 09/12/17 05:20 09/12/17 05:20 Labs: Laboratory Results - last 24 hr 09/11/17 09/11/17 09/11/17 11:52 11:52 11:52 WBC 3.5 L RBC 3.62 L Hgb 13.2 L Hct 37.7 L MCV 104.2 H MCH 36.6 H MCHC 35.1 RDW 15.5 H Plt Count 87 L Neut % (Auto) 70.4 Lymph % (Auto) 11.2 L [place] % (Auto) 17.3 H Eos % (Auto) 0.5 L Baso % (Auto) 0.6 Neut # (Auto) 2500 L PT 17.4 H INR 1.6 H APTT 38 H D Sodium 137 Potassium 5.3 H Chloride 107 Carbon Dioxide 23 BUN 42 H Creatinine 1.20 Estimated GFR 59.7 L BUN/Creatinine Ratio 35.0 H Glucose 149 H Calcium 8.6 Total Bilirubin AST ALT Alkaline Phosphatase Ammonia Total Protein Albumin Globulin Albumin/Globulin Ratio Urine RBC Urine WBC Urine Bacteria Ur Culture Indicated? Micro UA Comment Nasal Screen MRSA (PCR) Urine Opiates Screen Ur Oxycodone Screen Urine Methadone Screen Ur Barbiturates Screen U Tricyclic Antidepress Ur Phencyclidine Scrn Ur Amphetamines Screen U Methamphetamines Scrn Ur MDMA Scrn (Ecstasy) U Benzodiazepines Scrn Urine Cocaine Screen U Marijuana (THC) Screen 09/11/17 09/11/17 09/11/17 12:13 12:55 13:45 WBC RBC Hgb Hct MCV MCH MCHC RDW Plt Count Neut % (Auto) Lymph % (Auto) [place] % (Auto) Eos % (Auto) Baso % (Auto) Neut # (Auto) PT INR APTT Sodium Potassium Chloride Carbon Dioxide BUN Creatinine Estimated GFR BUN/Creatinine Ratio Glucose Calcium Total Bilirubin AST ALT Alkaline Phosphatase Ammonia 123.0 H Total Protein Albumin Globulin Albumin/Globulin Ratio Urine RBC 5-10/hpf H Urine WBC None seen Urine Bacteria None seen Ur Culture Indicated? Cult not indicated Micro UA Comment Not Reportable Nasal Screen MRSA (PCR) Urine Opiates Screen Positive H Ur Oxycodone Screen Negative Urine Methadone Screen Negative Ur Barbiturates Screen Negative U Tricyclic Antidepress Negative Ur Phencyclidine Scrn Negative Ur Amphetamines Screen Negative U Methamphetamines Scrn Negative Ur MDMA Scrn (Ecstasy) Negative U Benzodiazepines Scrn Negative Urine Cocaine Screen Negative U Marijuana (THC) Screen Negative 09/11/17 09/12/17 09/12/17 14:25 05:20 05:20 WBC 5.0 RBC 3.14 L Hgb 11.7 L Hct 33.1 L MCV 105.6 H MCH 37.4 H MCHC 35.4 RDW 15.5 H Plt Count 72 L Neut % (Auto) 72.2 Lymph % (Auto) 11.0 L [place] % (Auto) 15.4 H Eos % (Auto) 0.9 L Baso % (Auto) 0.5 Neut # (Auto) 3600 PT INR APTT Sodium 140 Potassium 5.1 Chloride 112 H Carbon Dioxide 21 L BUN 34 H Creatinine 0.90 Estimated GFR > 60.0 BUN/Creatinine Ratio 37.8 H Glucose 124 H Calcium 8.1 L Total Bilirubin 3.5 H AST 102 H ALT 47 Alkaline Phosphatase 167 H Ammonia Total Protein 7.3 Albumin 2.1 L Globulin 5.2 H Albumin/Globulin Ratio 0.4 L Urine RBC Urine WBC Urine Bacteria Ur Culture Indicated? Micro UA Comment Nasal Screen MRSA (PCR) Negative for mrsa Urine Opiates Screen Ur Oxycodone Screen Urine Methadone Screen Ur Barbiturates Screen U Tricyclic Antidepress Ur Phencyclidine Scrn Ur Amphetamines Screen U Methamphetamines Scrn Ur MDMA Scrn (Ecstasy) U Benzodiazepines Scrn Urine Cocaine Screen U Marijuana (THC) Screen 09/12/17 05:20 WBC RBC Hgb Hct MCV MCH MCHC RDW Plt Count Neut % (Auto) Lymph % (Auto) [place] % (Auto) Eos % (Auto) Baso % (Auto) Neut # (Auto) PT INR APTT Sodium Potassium Chloride Carbon Dioxide BUN Creatinine Estimated GFR BUN/Creatinine Ratio Glucose Calcium Total Bilirubin AST ALT Alkaline Phosphatase Ammonia 13.0 Total Protein Albumin Globulin Albumin/Globulin Ratio Urine RBC Urine WBC Urine Bacteria Ur Culture Indicated? Micro UA Comment Nasal Screen MRSA (PCR) Urine Opiates Screen Ur Oxycodone Screen Urine Methadone Screen Ur Barbiturates Screen U Tricyclic Antidepress Ur Phencyclidine Scrn Ur Amphetamines Screen U Methamphetamines Scrn Ur MDMA Scrn (Ecstasy) U Benzodiazepines Scrn Urine Cocaine Screen U Marijuana (THC) Screen Assessment & Plan Plan: Plan: One. Acute hepatic encephalopathy possibly due to medical noncompliance. Lactulose has been reinstituted and his ammonia level now back to normal. Symptomatically much improved but very weak. Plan to have him work with physical therapy today. His IV fluids encourage oral intake and possibly discharge home tomorrow 2. Hepatocellular carcinoma metastatic and patient has been DNR. 3. Disposition inpatient status appropriate for this patient 4. History of hypertension was recently taken off lisinopril and amlodipine when he was here in the hospital. Plan to resume home meds Quality VTE Deep Vein Thrombosis/Pulmonary Embolism Present on Admission: No
[2017-09-12 10:52] VITALS: BMI 21.7
[2017-09-12] MEDS: SODIUM CHLORIDE 0.9% FLUSH 10 ML IV ×2 (11:09→21:19)
--- NOTE | 2017-09-12 11:36 | PT.IIE ---
Current Diagnoses Acute and subacute hepatic failure without coma (09/11/17) Medical History (Last Reviewed 09/10/17 @ 09:01 by Rayshawn Lima MD) Hepatocellular carcinoma (Acute) Ascites of liver (Chronic) Essential hypertension (Chronic) Anemia of chronic disease (Chronic) DNR (do not resuscitate) (Acute) Liver cancer (Acute) Lung cancer (Acute) Physical Therapy Inpatient Evaluation/Re-Eval M1 PT/OT-IP Prior Functional Status Start: 09/12/17 10:42 Freq: NEEDED Status: Active Protocol: Document 09/12/17 11:19 RS (Rec: 09/12/17 11:33 RS [id number]) Medical Review Prior Functional Status Medical History Reviewed Yes Diet/Fluid Consistency Regular Mobility and Gait Pt reports not needing any equipment for walking, denies having any equipment at home, does admit to falling but states it was he was told but that he doesn't remember it. Social History Household Members none Living Arrangements House Number of Floors (Floors) One Floor Employment Status Retired M2 PT-IP Current Condition Start: 09/12/17 10:42 Freq: NEEDED Status: Active Protocol: Document 09/12/17 11:19 RS (Rec: 09/12/17 11:33 RS [id number]) Physical Therapy Current Condition Current Condition Evaluation Date 09/12/17 Treatment Diagnosis impaired strength/balance Onset Date 09/11/17 Precautions Other Precautions fall precautions, requires bed /chair alarm M3 PT-IP Subjective Start: 09/12/17 10:42 Freq: NEEDED Status: Active Protocol: Document 09/12/17 11:19 RS (Rec: 09/12/17 11:33 [id number]) Subjective Physical Therapy Visit Type Type Initial Evaluation Visit Start Time 11:00 Visit Stop Time 11:19 Total Visit Minutes 19 Physical Therapy Visit Comments Patient Comments Pt reports being very cold, not wanting to get out of bed. With encouragement agreeable to participate in session. Patient/Caregiver Goals go to rehab Therapy Pain Assessment Pain When Pain Assessed At Rest Pain Present Pain Present Denied Pain M4 PT-IP Mobility and Gait Start: 09/12/17 10:42 Freq: NEEDED Status: Active Protocol: Document 09/12/17 11:19 RS (Rec: 09/12/17 11:33 RS [id number]) PT-Bed Mobility Assessment Supine to Sit Supine to Sit Contact Guard Assistance Sit to Supine Sit to Supine Contact Guard Assistance Scooting Scooting to Edge of Bed Contact Guard Assistance Scooting Up and Down in Bed Minimal Assistance PT-Transfer Assessment Sit to and From Stand Sit to and from Stand Contact Guard Assistance Equipment Transfer Assistive Device Gait Belt Front Wheeled Walker Transfers Transfer Destination Chair Transfer Technique Stand Step Pivot Transfer Ability Level of Assist Contact Guard Assistance 1 Person Assistance Use of Upper Extremities Comments Mobility Comments pt shaky on feet but never loss balance Gait Assessment Gait Gait Assistance Required: Contact Guard Assist Distance (Feet) (feet) 30 Assistive Devices Assistive Device Gait Belt Front Wheeled Walker Gait Deviations General Gait Pattern Decreased Feet Clearance Flexed Trunk Factors Limiting Gait Function Factors Limiting Gait Function Decreased Activity Tolerance Decreased Strength Poor Balance Comments Gait Comments Pt quite slow with walking even short distances, shaky, but no LOB for focused walking . Pt's gait quality declined with dual tasks. PT-Balance Assessment Sitting Balance and Reactions Static Sitting Balance Ability Normal Dynamic Sitting Balance Ability Good Standing Balance and Reactions Static Standing Balance Ability Fair Dynamic Standing Balance Ability Fair Device Used FWW Balance Tests Small Balance Test Score 34/56 Query Text:Score M5 PT-IP Objective Assessments Start: 09/12/17 10:42 Freq: NEEDED Status: Active Protocol: Document 09/12/17 11:19 RS (Rec: 09/12/17 11:33 RS [id number]) Orientation Orientation/Cognition Level of Alertness Lethargic Orientation Name Place Safety Awareness Decreased Safety Awareness Comments Pt slow to answer questions but no obvious language deficits. Gross Range of Motion Upper Extremity ROM Assessment Within Functional Limits Lower Extremity ROM Assessment Within Functional Limits Strength Comments Strength Comments BLE/BUE grossly 4/5, pt more limited by poor activity tolerance. M6 PT-IP Treatment Start: 09/12/17 10:42 Freq: NEEDED Status: Active Protocol: Document 09/12/17 11:19 RS (Rec: 09/12/17 11:33 RS [id number]) Physical Therapy Treatment Education Education Provided Precautions Safety M7 PT-IP Assessment and Plan Start: 09/12/17 10:42 Freq: NEEDED Status: Active Protocol: Document 09/12/17 11:19 RS (Rec: 09/12/17 11:33 RS [id number]) PT Summary Assessment and Plan Potential Rehabilitation Potential Good Status of Condition at Evaluation Stable Summary Impairments Strength Transfers Gait Activity Tolerance Progress Towards Goals Progressing Toward Goals Assessment Summary Pt presents with gross weakness and impaired activity tolerance that make it difficult and unsafe for pt to return home alone. For simple straightfoward mobility (bed< >chair, walking straight in his room) pt only requiring CGA. However, when pt's balance is challenged in any way he is at a high fall risk. This, again, makes in unsafe for pt to be home alone. Pt does have potential for functional improvement. Pt will benefit from ongoing skilled subacute rehab therapies (PT/OT/[employer] INSTRUCTOR) at a SNF in order to optimize independence and safety with overall function. Goals Bed Mobility Goal Independent Transfer Goal Standby Assistance Gait Goal Standby Assistance Gait Distance 150 Days to Meet Goals 2 Frequency of Treatment Frequency Of Treatment Once a Day Treatment Plan Physical Therapy Treatment Plan Transfer Training Gait Training Therapeutic Exercise Discharge Planning Recommendations To Nursing Amount of Assist Needed 1 Person Assist Discharge Recommendations PT Discharge Recommendations SNF Rehab Provider Visit Care Team Role Provider Type Francy Cornelius PA-C Primary Care Provider Advanced Practioner Clinician Specialty: Family Practice Navjot Cohn DO Emergency Provider Physician Specialty: Emergency Medicine Cornelio Keith MD Admit Provider Physician Attending Provider Specialty: Internal Medicine
[2017-09-12 12:04] VITALS: BP 121/66; PULSE 68; RESP 18; TEMP 36.4; O2SAT 99
[2017-09-12 15:35] VITALS: BP 110/53; PULSE 75; RESP 18; TEMP 36.8; O2SAT 98
[2017-09-12] MEDS: FUROSEMIDE 20 MG TABLET PO (16:56)
[2017-09-12 19:23] VITALS: BP 121/68; PULSE 65; RESP 18; TEMP 36.9; O2SAT 97
[2017-09-12 23:53] VITALS: BP 125/65; PULSE 68; RESP 18; TEMP 36.8; O2SAT 98
[2017-09-13] VITALS (7 sets, daily range): BP systolic 113–147; BP diastolic 59–79; PULSE 66–91; RESP 14–72; TEMP 36.3–37; O2SAT 97–100
[2017-09-13 06:01] LABS: Alanine Aminotransferase 46 IU/L (21-72); Albumin Globulin Ratio 0.4 (1.0-2.8); Alkaline Phosphatase 146 U/L (38-126); Aspartate Aminotransferase 92 IU/L (17-59); BUN Creatinine Ratio 33.8 (6-22); Bilirubin Total 3.7 mg/dL (0.2-1.3); Blood Urea Nitrogen 27 mg/dL (9-20); Carbon Dioxide 20 mmol/L (22-32); Chloride 109 mmol/L (98-107); Estimated Glomerular Filt Rate > 60.0 mL/min (>60); Globulin 4.9 g/dL (1.7-4.1); Glucose 102 mg/dL (80-110); HEMOLYSIS < 15 (0-50); Potassium 4.8 mmol/L (3.4-5.1); Sodium 135 mmol/L (137-145); Total Protein 6.9 g/dL (6.3-8.2)
[2017-09-13 06:02] LABS: Basophils Percent Auto 0.4 % (0-2); Eosinophils Percent Auto 2.5 % (2-4); Hemoglobin 11.7 g/dL (13.5-17.5); Lymphocytes Percent Auto 13.5 % (25-40); Mean Corpuscular HGB Conc 35.4 % (30-36); Mean Corpuscular Hemoglobin 36.9 PG (26-34); Mean Corpuscular Volume 104.2 fL (80-100); Monocytes Percent Auto 14.9 % (3-14); Neutrophils Absolute Auto 2700 /uL (3000-5900); Neutrophils Percent Auto 68.7 % (50-75); Platelet Count 70 X10^3/uL (150-400); Red Blood Cell Count 3.17 X10^6/uL (4.5-5.9); Red Cell Distribution Width 15.1 % (11.6-14.8); White Blood Cell Count 3.9 X10^3/uL (4.5-11.0)
[2017-09-13 06:10] LABS: Add Manual Diff / Slide Review SLIDE REVIEW
[2017-09-13 06:40] LABS: Anisocytosis 1+
[2017-09-13] MEDS: SPIRONOLACTONE 50 MG TABLET PO (08:44)
[2017-09-13] MEDS: FUROSEMIDE 20 MG TABLET PO ×2 (08:44→16:20)
[2017-09-13] MEDS: LACTULOSE 20 GM/30 ML SOLUTION 10 GM PO ×4 (08:44→21:03)
[2017-09-13] MEDS: SODIUM CHLORIDE 0.9% FLUSH 10 ML IV ×2 (08:45→21:03)
--- NOTE | 2017-09-13 11:11 | P.PN_ITS ---
Subjective Date Patient Seen: 09/13/17 Time Patient Seen: 11:09 Interval history: Feeling better today no new complaints Exam Vital Signs (past 8 hours): Vital Signs - 8 hr 3 09/13/17 04:13 09/13/17 04:54 09/13/17 07:23 Temperature 98.5 F 98.3 F Pulse Rate 91 H 78 Respiratory Rate 19 14 Blood Pressure 127/65 H 140/76 H Pulse Oximetry 98 100 99 Pulse Oximetry 99 Oxygen Delivery Method Room Air Oxygen Flow Rate 0 Narrative Exam Narrative: Sitting up in a chair very awake and alert conversant HEENT exam unremarkable Lungs clear Heart regular rhythm Abdomen soft Lower extremities trace edema Neuro exam he is awake alert he is conversant speech normal focal deficits Objective Labs Result Diagrams: 09/13/17 05:22 09/13/17 05:22 Labs: Laboratory Results - last 24 hr 09/13/17 09/13/17 09/13/17 05:22 05:22 05:22 WBC 3.9 L RBC 3.17 L Hgb 11.7 L Hct 33.0 L MCV 104.2 H MCH 36.9 H MCHC 35.4 RDW 15.1 H Plt Count 70 L Neut % (Auto) 68.7 Lymph % (Auto) 13.5 L [place] % (Auto) 14.9 H Eos % (Auto) 2.5 Baso % (Auto) 0.4 Neut # (Auto) 2700 L RBC Morphology Not Reportable Anisocytosis 1+ H Sodium 135 L Potassium 4.8 Chloride 109 H Carbon Dioxide 20 L BUN 27 H Creatinine 0.80 Estimated GFR > 60.0 BUN/Creatinine Ratio 33.8 H Glucose 102 Calcium 8.0 L Total Bilirubin 3.7 H AST 92 H ALT 46 Alkaline Phosphatase 146 H Ammonia 39.0 H Total Protein 6.9 Albumin 2.0 L Globulin 4.9 H Albumin/Globulin Ratio 0.4 L Assessment & Plan Plan: Plan: One. Acute hepatic encephalopathy possibly due to medical noncompliance. Lactulose has been reinstituted and his ammonia level now back to normal. Symptomatically much improved but very weak. Physical therapy thought he was still very weak and a 1 person assist they will continue working with him and we will reassess for discharge tomorrow either home or custodial depending on his progress with physical therapy 2. Hepatocellular carcinoma metastatic he is followed by Oncology and patient has been DNR. 3. Disposition inpatient status appropriate for this patient 4. History of hypertension was recently taken off lisinopril and amlodipine when he was here in the hospital. Plan to resume home meds Quality VTE Deep Vein Thrombosis/Pulmonary Embolism Present on Admission: No
--- NOTE | 2017-09-13 11:18 | CM.DPC ---
D/c Plan continued: KSP met with patient today and had [address] Keith about this patient. Initially Dr. Keith felt pt might be ready for d/c home today. After his review of therapy notes and their recommendations, feels patient will benefit from one more night stay and work with PT, walk a lot, then d/c to home with resumption of [facility]. got strong message from patient that he would not consider a SNF at this point. DCP met with patient and confirmed he wants to go home and have HH resume; does not want to go to a facility. He now knows that d/c to home will likely be tomorrow and [facility] to resume. KSP confirmed that KENDRICK Kwon will be the salesperson hearing aids for HH to call for appt setup. Pt also informed KSP that he will not be avail for HH to start on Mon, as he has an appt in [place] that will take a long time. Patient stated no other needs except to get this catheter out. Pt felt like he will be able to work with therapy much better w/out the hester cath. KSP informed him that MD peña need to order this, and I would speak with his nurse about it. Then spoke w/attending RN Ena, informed her of the latest plan for d/c home and pt's strong desire to have hester cath d/c. She was heading directly to Dr. Keith to try to obtain an order for this. Contacted: Called KENDRICK Mathew and let her know latest plan for d/c home tomorrow with HH. She was grateful for this info, as she needs to set things up at home for patient return, and is appreciative of a bit more time. She is fine with his return tomorrow and resumption of HH. She will visit pt later today and may drop in to meet DCP if needed. Confirmed that she is the contact phone # for setting up HH appts. Contacted: [facility] phoned Eva at [facility] to inform of patient d/c plan. He stated they will have to start the pt with new SOC, as the initial SOC was never done r/t pt ongoing illness and return to . Eva says they have the F2F and will not need another, but will need a new order for HH. Gave Eva Mathew's phone number and patient's messg that he has appt in [place] on Friday and states no appt w/HH on that day. Eva to contact Priyanka and confirm. Eva informed DCP of additional care they have avail: [facility], and that this is private pay option if pt and CG need further help. DCP will inform KENDRICK Mathew of this and give Senior Resources booklet. Contacted: Dr. Keith and let him know of need for new HH order for this patient. Stated he will take care of this. Contacted: Had a phone conversation with Cata at [facility] earlier today about this pt. She stated no bed avail until Friday. After decision was made to d/c to home tomorrow w/HH resumption, left Cata a VM messg about this update and that pt will not be needing SNF. Faxed: Prog notes to [facility] as of 09/13 at Noon. Dixie Gaspar RN
--- NOTE | 2017-09-13 11:41 | PT.IPTN ---
Current Diagnoses Acute and subacute hepatic failure without coma (09/11/17) Physical Therapy Treatment Note M2 PT-IP Current Condition Start: 09/12/17 10:42 Freq: NEEDED Status: Active Protocol: Document 09/12/17 11:19 RS (Rec: 09/12/17 11:33 RS [id number]) Physical Therapy Current Condition Current Condition Evaluation Date 09/12/17 Treatment Diagnosis impaired strength/balance Onset Date 09/11/17 Precautions Other Precautions fall precautions, requires bed /chair alarm M3 PT-IP Subjective Start: 09/12/17 10:42 Freq: NEEDED Status: Active Protocol: Document 09/13/17 09:45 RS (Rec: 09/13/17 11:41 RS [id number]) Subjective Physical Therapy Visit Type Type Treatment Note Visit Start Time 09:30 Visit Stop Time 09:45 Total Visit Minutes 15 Physical Therapy Visit Comments Patient Comments Pt again feels like he's going way better. Therapy Pain Assessment Pain When Pain Assessed During Mobility Pain Present Pain Present Denied Pain M4 PT-IP Mobility and Gait Start: 09/12/17 10:42 Freq: NEEDED Status: Active Protocol: Document 09/13/17 09:45 RS (Rec: 09/13/17 11:41 RS [id number]) PT-Bed Mobility Assessment Supine to Sit Supine to Sit Standby Assistance Sit to Supine Sit to Supine Standby Assistance Scooting Scooting to Edge of Bed Standby Assistance Scooting Up and Down in Bed Minimal Assistance PT-Transfer Assessment Sit to and From Stand Sit to and from Stand Standby Assistance Equipment Transfer Assistive Device Gait Belt Front Wheeled Walker Comments Mobility Comments pt shaky on feet but never loss balance Gait Assessment Gait Gait Assistance Required: Contact Guard Assist Distance (Feet) (feet) 30 Assistive Devices Assistive Device Gait Belt Front Wheeled Walker Comments Gait Comments Pt quite slow with walking even short distances, shaky, but no LOB for focused walking . Pt's gait quality declined with dual tasks. M5 PT-IP Objective Assessments Start: 09/12/17 10:42 Freq: NEEDED Status: Active Protocol: Document 09/12/17 11:19 RS (Rec: 09/12/17 11:33 RS [id number]) Orientation Orientation/Cognition Level of Alertness Lethargic Orientation Name Place Safety Awareness Decreased Safety Awareness Comments Pt slow to answer questions but no obvious language deficits. Gross Range of Motion Upper Extremity ROM Assessment Within Functional Limits Lower Extremity ROM Assessment Within Functional Limits Strength Comments Strength Comments BLE/BUE grossly 4/5, pt more limited by poor activity tolerance. M6 PT-IP Treatment Start: 09/12/17 10:42 Freq: NEEDED Status: Active Protocol: Document 09/12/17 11:19 RS (Rec: 09/12/17 11:33 RS [id number]) Physical Therapy Treatment Education Education Provided Precautions Safety M7 PT-IP Assessment and Plan Start: 09/12/17 10:42 Freq: NEEDED Status: Active Protocol: Document 09/13/17 09:45 RS (Rec: 09/13/17 11:41 RS [id number]) PT Summary Assessment and Plan Summary Assessment Summary Pt's overall mobility and stability has significantly improved since yesterday. Pt still shouldn't be alone and would need increased assistance if returning home. Pt would still benefit from SNF. However, if pt does d/c directly home, the OT recommendations would be valuable for the determination of how much and what type of assistance is needed. Recommendations To Nursing Amount of Assist Needed 1 Person Assist Discharge Recommendations PT Discharge Recommendations SNF Rehab
--- NOTE | 2017-09-13 12:40 | OT.IP.EVAL ---
Current Diagnoses Acute and subacute hepatic failure without coma (09/11/17) Past Medical History (Last Reviewed 09/10/17 @ 09:01 by Rayshawn Lima MD) Hepatocellular carcinoma (Acute) Ascites of liver (Chronic) Essential hypertension (Chronic) Anemia of chronic disease (Chronic) DNR (do not resuscitate) (Acute) Liver cancer (Acute) Lung cancer (Acute) Occupational Therapy Inpatient Evaluation/Re-Eval M1 PT/OT-IP Prior Functional Status Start: 09/12/17 10:42 Freq: NEEDED Status: Active Protocol: Document 09/12/17 11:19 RS (Rec: 09/12/17 11:33 RS [id number]) Medical Review Prior Functional Status Medical History Reviewed Yes Diet/Fluid Consistency Regular Mobility and Gait Pt reports not needing any equipment for walking, denies having any equipment at home, does admit to falling but states it was he was told but that he doesn't remember it. Social History Household Members none Living Arrangements House Number of Floors (Floors) One Floor Employment Status Retired M1 PT/OT-IP Prior Functional Status Start: 09/13/17 12:18 Freq: NEEDED Status: Active Protocol: Document 09/13/17 12:18 ADH (Rec: 09/13/17 12:40 ADH [id number]) Medical Review Prior Functional Status Medical History Reviewed Yes Diet/Fluid Consistency Regular Mobility and Gait Pt reports not needing any equipment for walking, denies having any equipment at home, does admit to falling but states it was he was told but that he doesn't remember it. Activities of Daily Living and IADL's Pt reports he was previously I with all tasks, including driving, managing medications, cooking, cleaning, and fishing on personal boat. Social History Household Members none Living Arrangements House Number of Floors (Floors) One Floor Home Environment Standard Height Toilet Tub/Shower Doors Employment Status Retired Additional Social History Comment Pt has friend Priyanka and her mom who occasionally assisted, but not daily. M2 OT-IP Current Condition Start: 09/13/17 12:18 Freq: Status: Active Protocol: Document 09/13/17 12:18 ADH (Rec: 09/13/17 12:40 ADH [id number]) Occupational Therapy Current Condition Current Condition Evaluation Date 09/13/17 Treatment Diagnosis weakness Diagnosis Onset Date 5/31/18 Post Operative Precautions Other Precautions fall precautions, requires bed /chair alarm M3 OT- IP Subjective and Pain Start: 09/13/17 12:18 Freq: Status: Active Protocol: Document 09/13/17 12:18 ADH (Rec: 09/13/17 12:40 ADH [id number]) OT- Subjective Occupational Therapy Visit Type Type Initial Evaluation Visit Start Time 09:45 Visit Stop Time 10:31 Total Visit Minutes 46 Notes Pt agreeable to OT evaluation OT Pain Assessment Pain When Pain Assessed At Rest Pain Present Pain Present Denied Pain M4 OT- IP ADL's Start: 09/13/17 12:18 Freq: Status: Active Protocol: Document 09/13/17 12:18 ADH (Rec: 09/13/17 12:40 ADH [id number]) OT ADL-Grooming General Evaluation Grooming Ability Standby Assistance OT ADL-Toileting General Evaluation Toileting Ability Standby Assistance M6 OT- IP Functional Cognition Start: 09/13/17 12:18 Freq: Status: Active Protocol: Document 09/13/17 12:18 ADH (Rec: 09/13/17 12:40 ADH [id number]) Cognitive Factors Limiting Selfcare Function Cognitive Ability Level of Alertness Alert Patient Orientation Name Age Birthday Month Date Year Day of Week Place Situation Attention Span Ability Capable of Focused Attention Capable of Sustained Attention Ability to Follow Commands Able to Follow One Step Commands Able to Follow Multi-Step Commands Memory Description Immediate Impaired Short Term Impaired Working Impaired Cognitive Tests MOCA MoCA 7.1 with pt scoring 12/30 , indicating moderate cognitive impairment. Pt with deficits in executive functioning, memory and delayed recall, language, attention. Pt with no deficits in orientation or naming. OT- Vision and Hearing OT- Vision Assessment Visual Acuity Glasses All The Time M7 OT- IP Mobility and Balance Start: 09/13/17 12:18 Freq: Status: Active Protocol: Document 09/13/17 12:18 ADH (Rec: 09/13/17 12:40 ADH [id number]) OT-Transfer Assessment Sit to and From Stand Sit to and from Stand Standby Assistance Transfers Transfer Ability Standby Assistance Technique Transfer Destination Bed Chair Toilet Transfer Technique Stand Step Pivot Devices Transfer Assistive Devices Gait Belt Front Wheeled Walker Comments Mobility Comments Pt picked up FWW and walked with it to chair. OT- Gait Assessment Gait Gait Assistance Required: Standby Assistance Distance (Feet) (feet) 25 Assistive Devices Assistive Device Gait Belt Front Wheeled Walker OT- Balance Assessment Sitting Balance and Reactions Static Sitting Balance Ability Good Dynamic Sitting Balance Ability Good Standing Balance and Reactions Static Standing Balance Ability Good Dynamic Standing Balance Ability Good M9 OT- IP Assessment and Plan Start: 09/13/17 12:18 Freq: Status: Active Protocol: Document 09/13/17 12:18 ADH (Rec: 09/13/17 12:40 ADH [id number]) OT Summary Assessment and Plan Potential Rehabilitation Potential Good Analytic Complexity at Evaluation Low Summary OT Impairments Functional Cognition Progress Towards Goals Progressing Toward Goals Assessment Summary Pt presents to OT services s/p recent discharge and rehospitalization 2' medical state. Pt presents with good functional mobility and good ability to perform familiar tasks of self care with only SBA. Pt with decreased cognition as observed through the MoCA 7.1, though it is masked easily with casual conversation. Impaired cognition result in decreased safety awareness and problem solving, rendering this verse writer to [facility] pt d/c home with increased supervision. Goals Dressing Goal Independent Toileting Goal Independent Toilet Transfer Goal Independent Frequency of Treatment Frequency Of Treatment Once a Day Treatment Plan OT Treatment Plan ADL Training Functional Cognition Training Patient/Family Education Discharge Planning Discharge Recommendations OT Discharge Recommendations Home with Assistance
--- NOTE | 2017-09-13 16:07 | CM.DPC ---
[facility] Ongoing Assmt: Patient's POA and friend Priyanka Kwon had not arrived by [facility] day end. Gave patient copy of the Senior Resources booklet with stickey note attached to front for Priyanka, emphasizing that patient will need daily check-in upon d/c, will need daily reminders and possible setup for his meds, and that this booklet may have some helpful ideas for her in caring for this patient. Patient reiterated that he would like to get out of here and go home, and [facility] assured him that we knew of his wishes, and encouraged him to continue his good work with therapy so that this may occur. He verbalized understanding. Reminded him that [facility] office is two doors down from his, and if Priyanka arrives she can come in at any time the office is open. Faxed clinicals and updated HH order to [facility] including disciplines of RN/PT/OT/PAY STATION COLLECTOR for bathing assist. Positive FAX confirmation received. Dixie Gaspar RN
--- NOTE | 2017-09-13 16:07 | PC.NURSE ---
Patient is a&o x3 very pleasant and cooperative and is able to make needs known to staff when nec. Patient is resting in bed watching T.V. denies pain at this time, but does have needs to go to the BR freq. due to loose stools. likely r/t lactulose tx patient has been receiving. Patient does report last stool was a bit more formed then last. Patient has seizure pads placed on bed rail. 97% on RA, VSS. Call light w/in reach, bed in low pos. alarm active.
[2017-09-13] MEDS: TRAMADOL 50 MG TABLET PO (22:46)
[2017-09-14] VITALS (8 sets, daily range): BP systolic 100–128; BP diastolic 53–71; PULSE 63–79; RESP 16–24; TEMP 36.6–38.1; O2SAT 94–96
[2017-09-14] MEDS: TRAMADOL 50 MG TABLET PO (04:06)
--- NOTE | 2017-09-14 05:18 | PC.NURSE ---
Sales Engineering Manager- Temp 100.5F, pt had several blankets on, taken off, rechecked for Temp of 99.8F, then repeated again for 99.5F. Pt stated no symptoms, no diaphoresis noted. Reported 6/10 low back pain, tramadol prn given at 0405 with good effect. States usually takes [place] at home for back pain, educated on effects of acetaminophen & liver involvement, pt states he heard that from a Dr also. Pt had one episode of a nose bleed, DIE CASTING SUPERVISOR had noted small amount of blood on pt's pillow. Remains on telemetry without issue throughout night.
[2017-09-14] MEDS: LACTULOSE 20 GM/30 ML SOLUTION 10 GM PO ×2 (08:24→13:25)
[2017-09-14] MEDS: SPIRONOLACTONE 50 MG TABLET PO (08:24)
[2017-09-14] MEDS: FUROSEMIDE 20 MG TABLET PO (08:24)
[2017-09-14] MEDS: SODIUM CHLORIDE 0.9% FLUSH 10 ML IV (08:25)
--- NOTE | 2017-09-14 11:18 | PT.IPTN ---
Current Diagnoses Acute and subacute hepatic failure without coma (09/11/17) Physical Therapy Treatment Note M2 PT-IP Current Condition Start: 09/12/17 10:42 Freq: NEEDED Status: Active Protocol: Document 09/14/17 11:08 [facility] (Rec: 09/14/17 11:15 [facility] [id number]) Physical Therapy Current Condition Current Condition Evaluation Date 09/12/17 Treatment Diagnosis impaired strength/balance Onset Date 09/11/17 Precautions Other Precautions fall precautions, requires bed /chair alarm M3 PT-IP Subjective Start: 09/12/17 10:42 Freq: NEEDED Status: Active Protocol: Document 09/14/17 11:08 [facility] (Rec: 09/14/17 11:15 [facility] [id number]) Subjective Physical Therapy Visit Type Type Treatment Note Visit Start Time 10:50 Visit Stop Time 11:05 Total Visit Minutes 15 Physical Therapy Visit Comments Patient Comments pt feels like he is doing better. He is sitting up in bedside chair and reports he walked with nursing this AM. He agrees to get up with PT again Patient/Caregiver Goals to go home Therapy Pain Assessment Pain When Pain Assessed During Mobility Pain Present Pain Present Denied Pain M4 PT-IP Mobility and Gait Start: 09/12/17 10:42 Freq: NEEDED Status: Active Protocol: Document 09/14/17 11:08 [facility] (Rec: 09/14/17 11:15 [facility] [id number]) PT-Transfer Assessment Sit to and From Stand Sit to and from Stand Standby Assistance Equipment Transfer Assistive Device Gait Belt Front Wheeled Walker Transfer Ability Level of Assist Standby Assistance Comments Mobility Comments Marco Antonio was stable today on his feet, no loss of balance noted Gait Assessment Gait Gait Assistance Required: Contact Guard Assist Distance (Feet) (feet) 120 Assistive Devices Assistive Device Gait Belt Front Wheeled Walker Comments Gait Comments Marco Antonio had a good speed today with walking and no loss balance, he was very stable and not shakey this am. He could talk to me while walking without stopping PT-Balance Assessment Sitting Balance and Reactions Static Sitting Balance Ability Normal Dynamic Sitting Balance Ability Good Standing Balance and Reactions Static Standing Balance Ability Good Dynamic Standing Balance Ability Good Device Used fww M5 PT-IP Objective Assessments Start: 09/12/17 10:42 Freq: NEEDED Status: Active Protocol: Document 09/12/17 11:19 RS (Rec: 09/12/17 11:33 RS [id number]) Orientation Orientation/Cognition Level of Alertness Lethargic Orientation Name Place Safety Awareness Decreased Safety Awareness Comments Pt slow to answer questions but no obvious language deficits. Gross Range of Motion Upper Extremity ROM Assessment Within Functional Limits Lower Extremity ROM Assessment Within Functional Limits Strength Comments Strength Comments BLE/BUE grossly 4/5, pt more limited by poor activity tolerance. M6 PT-IP Treatment Start: 09/12/17 10:42 Freq: NEEDED Status: Active Protocol: Document 09/12/17 11:19 RS (Rec: 09/12/17 11:33 RS [id number]) Physical Therapy Treatment Education Education Provided Precautions Safety M7 PT-IP Assessment and Plan Start: 09/12/17 10:42 Freq: NEEDED Status: Active Protocol: Document 09/14/17 11:08 [facility] (Rec: 09/14/17 11:15 [facility] [id number]) PT Summary Assessment and Plan Potential Rehabilitation Potential Good Status of Condition at Evaluation Stable Summary Impairments Strength Assessment Summary Ross demonstrated improved stability with gait today without loss of balance and good tolerance for further ambulation distance Frequency of Treatment Frequency Of Treatment Once a Day Treatment Plan Physical Therapy Treatment Plan Transfer Training Gait Training Therapeutic Exercise Discharge Planning Recommendations To Nursing Amount of Assist Needed Standby Assistance Discharge Recommendations PT Discharge Recommendations Home Home with Assistance SNF Rehab Other Discharge Recommendations the patient would like to go home but does live alone. He reports his friends have gotten him a walker. He did seem like he has made a great deal of progress from even yesterday and was stable on his feet without any loss of balance and was able to follow all commands.
--- NOTE | 2017-09-14 13:35 | PC.NURSE ---
1330 Pt restying in bed, has been up to chair on and off. Pt requests to go home today, await f/u by Dr Keith. Pt denies pain.
--- NOTE | 2017-09-14 14:02 | P.DS_ITS ---
History of Present Illness Chief complaint: CVA Narrative: Marco Antonio Zamudio is a 72 year old male Marco Antonio Zamudio is a 72 year old male who was discharged yesterday from this hospital after an observation stay for mildly elevated troponin. He was doing well yesterday when he was discharged back home but he returns today via ambulance being unresponsive and noted to have an elevated ammonia level of over 120 here in the emergency department this afternoon. Initially thought to have either had a stroke he was obtunded and unable to give a history CT scan was unremarkable and did not seem to have any lateralizing neurologic deficits but just decreased level of consciousness and unresponsive to this beach and verbal stimuli. He does have a history of hepatocellular carcinoma and is DNR Discharge Providers Date of admission: 09/11/17 13:56 Primary care physician: Francy Cornelius PA-C Consults: 09/11/17 14:47 Consult to Dietitian, Adult Routine Comment: Reason For Exam: assessed at high risk 09/12/17 10:09 Consult to Physical Therapy Evaluate & Treat Comment: weak Physician Instructions: Evaluate and Treat 09/12/17 12:58 Consult to Occupational Therapy Evaluate & Treat Comment: Physician Instructions: Evaluate and treat 09/13/17 14:08 Consult to Home Health Routine Comment: Reason For Exam: RN, PT, OT, bath aide by at discharge Discharge provider: Cornelio Keith MD Summary Discharge Diagnosis: One. Acute hepatic encephalopathy 2. Hepatocellular carcinoma metastatic 3. Hypertension Hospital Course: He presented with severe exacerbation of the acute hepatic encephalopathy questionable medical compliance is the cause of this. He was put back on the lactulose and gradually over the next 24-48 hours he returned to his baseline and is actually doing well he is able to ambulate on his own and has had been continued improvement with physical therapy. He will be discharged home but will need close follow-up home health and caregiver probably in the home every day to make sure he is taking medications Status at Discharge Functional status at discharge: independent ambulation Time Spent with Patient Greater than 30 minutes Exam Vital Signs (past 8 hours): Vital Signs - 8 hr 3 09/14/17 08:13 09/14/17 11:52 Temperature 98 F 98.6 F Pulse Rate 71 63 Respiratory Rate 16 20 Blood Pressure 100/57 L 100/53 L Pulse Oximetry 94 95 Pulse Oximetry 95 Oxygen Delivery Method Room Air Oxygen Flow Rate 0 Objective Labs Result Diagrams: 09/13/17 05:22 09/13/17 05:22 Discharge Plan Discharge Plan Patient Disposition: Home Health Service Provider Discharge Instructions Diet: Low-sodium Discharge Data Primary Care Provider: Francy Cornelius Attending Provider: Cornelio Keith Admit Date/Time: 09/11/17 13:56 Quality VTE Deep Vein Thrombosis/Pulmonary Embolism Present on Admission: No
--- NOTE | 2017-09-14 14:03 | CM.DPC ---
Addendum entered by Dixie Sutherland 09/14/17 14:22: Discharge summary became available and this was faxed along with [facility], so they should have all pertinent information to do SOC on patient this coming week. Dixie Sutherland RN Original Note: DCP ongoing and Discharge Today: DCP spoke with Dr. Keith who is ready to d/c this patient to home today with follow up from [facility]. Assured him that DC office has been in contact w/patient's caregiver Priyanka who called office this morning wanting update. to write d/c orders and d/c summary. Contacted: Spoke with charge nurse Abigail and floor RN Ena about timing of d/c. They felt like somewhere between 3-3:30 was good timing. Patient is currently sleeping very soundly, so he was not awakened by undersigned to update him on this current plan. DCP called patient's CG Priyanka Kwon and informed of plan for d/c today. She is fine with this and will plan to pick him up at 3-3:30. [facility] inquired if patient had filled out a POLST form and had those types of conversations with MD; she stated he had not, and they would appreciate receiving a form to fill out. ILP left a POLST form with Priyanka's name on it on bedside table. Also left information[facility]brochure on [facility] and a note stating that patient must be homebound and NOT driving to receive HH services. [facility]ed [facility]. Informed him that pt will be d/c this afternoon. Reiterated that he needs to contact CG Priyanka, and repeated her phone #, to set up initial SOC. Confirmed that the new order for HH services was faxed to [facility] yesterday and the d/c summary will be faxed when it is available. Eva stated understanding. Plan: D/c to home today under care of CG Priyanka. She will drive him home and be the backshoe person for [facility] to start. Dixie Sutherland RN
--- NOTE | 2017-09-14 14:45 | PC.NURSE ---
1430 Pt is dcd to home. Will have Home Health to f/u. Pt awaits friend Priyanka to pick him up/transport home. Saline lock dcd, tele off, Pt up to BRP using walker.
--- NOTE | 2017-09-14 15:25 | PC.NURSE ---
1505 Pt dcd to home w/Priyanka. Escorted out via w/c/
== END 2017-09-14 15:05 | disposition home health service (06) | DRG 441 ==
LOC: ED 12:47 → ICU 13:58 → AC 17:49
PROVIDERS: Admitting Provider Internal Medicine; Emergency Provider Emergency Medicine; PCP Physician Assistant; Visit Provider Internal Medicine
DX: K72.00 Acute and subacute hepatic failure without coma (principal); E43 Unspecified severe protein-calorie malnutrition; C22.0 Liver cell carcinoma; C78.00 Secondary malignant neoplasm of unspecified lung; R18.0 Malignant ascites; Z66 Do not resuscitate; Z68.22 Body mass index [BMI] 22.0-22.9, adult
CPT/HCPCS: 36415; 36591; 36592; 51701; 70450; 74018; 80048; 80053; 80076; 80305; 81003; 81015; 82140; 82962; 83605; 83690; 84484; 85025; 85610; 85730; 87797; 93005; 93041; 94762; 97116; 97161; 97165; 97535; 99283; 99285; 99291; G0378; J2405

== ENCOUNTER → 2017-09-18 15:18 | Outpatient (CLI) | payer MEDICARE, OTHER, SELFPAY ==
[2017-09-11 14:31] VITALS: BMI 21.7
[2017-09-18 15:34] LABS: Add Manual Diff / Slide Review NO; Basophils Percent Auto 0.8 % (0-2); Eosinophils Percent Auto 1.6 % (2-4); Hematocrit 33.2 % (41-53); Hemoglobin 11.7 g/dL (13.5-17.5); Lymphocytes Percent Auto 13.6 % (25-40); Mean Corpuscular HGB Conc 35.1 % (30-36); Mean Corpuscular Hemoglobin 36.2 PG (26-34); Mean Corpuscular Volume 103.1 fL (80-100); Monocytes Percent Auto 13.7 % (3-14); Neutrophils Absolute Auto 3600 /uL (3000-5900); Neutrophils Percent Auto 70.3 % (50-75); Platelet Count 95 X10^3/uL (150-400); Red Blood Cell Count 3.22 X10^6/uL (4.5-5.9); Red Cell Distribution Width 14.9 % (11.6-14.8); White Blood Cell Count 5.1 X10^3/uL (4.5-11.0)
[2017-09-18 15:47] LABS: Alanine Aminotransferase 54 IU/L (21-72); Albumin 2.5 g/dL (3.5-5.0); Albumin Globulin Ratio 0.5 (1.0-2.8); Alkaline Phosphatase 182 U/L (38-126); Aspartate Aminotransferase 97 IU/L (17-59); BUN Creatinine Ratio 27.8 (6-22); Bilirubin Total 3.2 mg/dL (0.2-1.3); Blood Urea Nitrogen 25 mg/dL (9-20); Calcium 8.1 mg/dL (8.4-10.2); Carbon Dioxide 24 mmol/L (22-32); Chloride 97 mmol/L (98-107); Estimated Glomerular Filt Rate > 60.0 mL/min (>60); Globulin 5.1 g/dL (1.7-4.1); Glucose 164 mg/dL (80-110); HEMOLYSIS < 15 (0-50); Potassium 4.6 mmol/L (3.4-5.1); Sodium 129 mmol/L (137-145); Total Protein 7.6 g/dL (6.3-8.2)
== END ==
PROVIDERS: Internal Medicine Hematology & Oncology; PCP Physician Assistant; Visit Provider Internal Medicine Hematology & Oncology
DX: C22.0 Liver cell carcinoma (principal)
CPT/HCPCS: 36415; 80053; 82105; 85025

== ENCOUNTER → 2017-09-25 17:38 | Outpatient (CLI) | payer MEDICARE, OTHER, SELFPAY ==
[2017-09-11 14:31] VITALS: BMI 21.7
[2017-09-25 18:20] LABS: INR 1.9 (0.9-1.3); Prothrombin Time 20.2 SECONDS (10.1-12.7)
[2017-09-25 19:04] LABS: Alanine Aminotransferase 46 IU/L (21-72); Albumin 2.4 g/dL (3.5-5.0); Albumin Globulin Ratio 0.4 (1.0-2.8); Alkaline Phosphatase 209 U/L (38-126); Aspartate Aminotransferase 90 IU/L (17-59); BUN Creatinine Ratio 25.6 (6-22); Bilirubin Total 3.7 mg/dL (0.2-1.3); Blood Urea Nitrogen 23 mg/dL (9-20); Calcium 8.4 mg/dL (8.4-10.2); Carbon Dioxide 26 mmol/L (22-32); Chloride 100 mmol/L (98-107); Estimated Glomerular Filt Rate > 60.0 mL/min (>60); Globulin 5.6 g/dL (1.7-4.1); Glucose 167 mg/dL (80-110); HEMOLYSIS < 15 (0-50); Potassium 4.7 mmol/L (3.4-5.1); Sodium 134 mmol/L (137-145)
== END ==
PROVIDERS: PCP Physician Assistant; Visit Provider Internal Medicine Gastroenterology
DX: K70.31 Alcoholic cirrhosis of liver with ascites (principal); Z53.9 Procedure and treatment not carried out, unspecified reason
CPT/HCPCS: 36415; 80053; 85610

== ENCOUNTER 2017-09-30 17:51 | Inpatient (IN) | payer MEDICARE, OTHER, SELFPAY ==
[2017-09-11 14:31] VITALS: BMI 21.7
[2017-09-30 17:59] VITALS: BP 114/51; PULSE 83; RESP 12; TEMP 36.6; O2SAT 98
--- NOTE | 2017-09-30 18:25 | PC.NURSE ---
pt with hx of liver cancer, lives alone, friend found him on the floor with left arm skin tear. pt non verbal
--- NOTE | 2017-09-30 18:33 | DI.CT.S_ITS ---
PROCEDURE: CT HEAD/BRAIN WO CON INDICATIONS: altered mental status. found down. TECHNIQUE: Noncontrast 4.5 mm thick angled axial sections acquired from the foramen magnum to the vertex, with coronal and sagittal reformats. For radiation dose reduction, the following was used: automated exposure control, adjustment of mA and/or kV according to patient size. COMPARISON: [facility], CT, CT HEAD/BRAIN WO CON, 09/11/2017, 11:39. FINDINGS: Image quality: Excellent. CSF spaces: Basal cisterns are patent. No extra-axial fluid collections. The ventricles are symmetric in size and shape. Brain: No intracranial bleeds or masses. There is cerebral volume loss for age, with resultant ventricular and sulcal prominence. There are periventricular and deep white matter chronic small vessel ischemic changes. There is intracranial internal carotid artery atherosclerosis. Skull and face: Calvarium and visualized facial bones appear intact, without suspicious lesions. Sinuses: Visualized sinuses and mastoids are clear. IMPRESSION: No acute intracranial abnormality. Dictated by: Osiris Mena M.D. on 09/30/2017 at 19:23 Approved by: Osiris Mena M.D. on 09/30/2017 at 19:23
--- NOTE | 2017-09-30 18:33 | DI.RAD.S_ITS ---
PROCEDURE: XR CHEST 1V INDICATIONS: altered mental status TECHNIQUE: One view of the chest was acquired. COMPARISON: [facility], , CHEST 2 VIEW, 08/02/2016, 12:16. FINDINGS: Surgical changes and devices: None. Lungs and pleura: No pleural effusions or pneumothorax. Lungs are clear. Mediastinum: Mediastinal contours appear normal. Heart size is normal. Bones and chest wall: No suspicious bony lesions. Overlying soft tissues appear unremarkable. IMPRESSION: No acute process. Dictated by: Osiris Mena M.D. on 09/30/2017 at 19:22 Approved by: Osiris Mena M.D. on 09/30/2017 at 19:23
[2017-09-30 18:41] LABS: Add Manual Diff / Slide Review NO; Basophils Percent Auto 0.3 % (0-2); Eosinophils Percent Auto 0.4 % (2-4); Hematocrit 37.5 % (41-53); Hemoglobin 13.3 g/dL (13.5-17.5); Lymphocytes Percent Auto 10.4 % (25-40); Mean Corpuscular HGB Conc 35.4 % (30-36); Mean Corpuscular Hemoglobin 35.8 PG (26-34); Monocytes Percent Auto 10.4 % (3-14); Neutrophils Absolute Auto 2700 /uL (3000-5900); Neutrophils Percent Auto 78.5 % (50-75); Platelet Count 79 X10^3/uL (150-400); Red Blood Cell Count 3.71 X10^6/uL (4.5-5.9); White Blood Cell Count 3.4 X10^3/uL (4.5-11.0)
[2017-09-30 18:46] LABS: Prothrombin Time 21.2 SECONDS (10.1-12.7)
[2017-09-30 18:50] LABS: PTT Partial Thromboplastin Tim 40 SECONDS (26.4-36.2)
[2017-09-30 18:53] LABS: Lactate (Lactic Acid) 3.9 mmol/L (0.7-2.1)
[2017-09-30] MEDS: SODIUM CHLORIDE 0.9% 1,000 ML 1000 ML IV (19:05)
[2017-09-30 19:18] LABS: Alanine Aminotransferase 43 IU/L (21-72); Albumin Globulin Ratio 0.5 (1.0-2.8); Alkaline Phosphatase 247 U/L (38-126); Aspartate Aminotransferase 96 IU/L (17-59); BUN Creatinine Ratio 23.8 (6-22); Bilirubin Total 6.8 mg/dL (0.2-1.3); Blood Urea Nitrogen 19 mg/dL (9-20); Calcium 8.8 mg/dL (8.4-10.2); Carbon Dioxide 22 mmol/L (22-32); Chloride 101 mmol/L (98-107); Estimated Glomerular Filt Rate > 60.0 mL/min (>60); Ethanol (ETOH) < 10 mg/dL; Globulin 5.6 g/dL (1.7-4.1); Glucose 162 mg/dL (80-110); HEMOLYSIS < 15 (0-50); Lipase 221 U/L (23-300); Potassium 4.7 mmol/L (3.4-5.1); Sodium 133 mmol/L (137-145); Total Protein 8.6 g/dL (6.3-8.2); Troponin I 0.041 ng/mL (0.01-0.034)
[2017-09-30 19:23] LABS: Prolactin 14.6 ng/mL (3.7-17.9)
[2017-09-30 19:35] LABS: Creatine Kinase 95 U/L (55-170)
[2017-09-30] MEDS: VANCOMYCIN 1,000 MG/200 ML FROZ.PIGGY 200 MG IV (19:39)
[2017-09-30 19:53] LABS: Free T4, Direct Thyroxine 1.86 ng/dL (0.78-2.19)
--- NOTE | 2017-09-30 20:02 | PC.NURSE ---
Report from Lesley ALAMO at 1925, lab finishing drawing labs at present.
--- NOTE | 2017-09-30 20:03 | PC.NURSE ---
Now. Patient returned to sleep immediately after lab left bedside. This RN hung Vanc per orders, POA arrived to BS and will be contacting hospice to find out the plan on that end. Left home phone number in case of emergency. IV patent and infusing with irritation.
[2017-09-30 20:07] LABS: Thyroid Stimulating Hormone 2.64 uIU/mL (0.47-4.68)
[2017-09-30 20:13] VITALS: BP 136/72; PULSE 93; RESP 17; O2SAT 99
--- NOTE | 2017-09-30 20:34 | ED_ITS ---
HPI - Altered Mental Status General Chief Complaint: Altered Mental Status Stated Complaint: Decreased LOC Time Seen by Provider: 09/30/17 17:53 History of Present Illness HPI narrative: HPI 72-year-old male with hepatocellular carcinoma, ascites, anemia of chronic disease, uncontrolled DM II, hepatitis C, and current active consideration for hospice care presents with minimal responsiveness after being found down at home after unknown period of time by a neighbor. Patient noted to have a skin tear on his left forearm. No further history available. M/S/F/SocHx notable for: please see HPI; remainder reviewed in the chart. ROS: unable to obtain secondary to the patient's mentation. Exam Gen: laying on left side, position, not responding to voice or light touch. Patient will blink and close eyes when they are opened by gently elevating his eyelids. Sin, cachectic, malodorous. HEENT: normocephalic, atraumatic, pupils equal round and reactive to light, extraocular movements appear to be intact. Resp: Clear to auscultation bilaterally, normal work of breathing, no accessory muscle usage. Card: Regular rate and rhythm with no murmurs, rubs, or gallops, extremities warm and well perfused. GI: nontender to palpation throughout, mildly distended, of fluid wave. No rebound, no guarding. : No suprapubic tenderness to palpation. MSK: superficial skin tear on left forearm, no further visible deformities, strength and tone without visually appreciable deficit. Skin: pale color, otherwise no further visible lesions. Neuro: no facial asymmetry, intermittently moving all extremities without grossly appreciable deficit. Psych: unable to assess. Labs / Imaging: WBC 3.4, HB 13.3, PT/INR 2.0, sodium 133, potassium 4.7, lactic 3.9, ammonia 53 , TSH 2.64, free T4 1.86, procalcitonin 0.90, CK 95, troponin 0.041 UA - pending EtOH <10 CXR: no acute disease. CT head: no acute intracranial abnormality. EKG: atrial fibrillation with a ventricular rate of 92 bpm. MDM Previous chart, nursing note, labs, imaging, and vitals reviewed. A: 72-year-old male with hepatocellular carcinoma, ascites, anemia of chronic disease, uncontrolled DM II, hepatitis C, and current active consideration for hospice care presents with minimal responsiveness after being found down at home after unknown period of time by a neighbor. DDx & Evaluation: CT head without evidence of acute intracranial abnormality, physical exam notable for a skin tear without evidence of further clinically significant injuries, chest x-ray without evidence of infection, Pro calcitonin mildly elevated as is the patient's lactic acid, unclear if patient is septic at the present time, 1 L normal saline given, blood cultures drawn, vancomycin and cefepime given empirically, and patient given 20 g rectal lactulose for treatment of suspected hepatic encephalopathy. No clear evidence of SBP, however the present exam is very limited. No identifiable high-risk features for meningitis/infectious encephalitis; given alternate diagnosis an LP is not currently indicated. EKG with atrial fibrillation. Given the patient's significant comorbidities anticoagulation was not initiated in the ED. At the time of admission the patient's analysis is pending, further evaluation and interpretation deferred to the admitting physician. Impression: AMS, ? Sepsis with source unknown, hepatic encephalopathy (please reference below for remainder of encounter information) Critical Care Time Organ system(s): Cardiopulmonary, [employer] Intervention: Assessment of the patient, interpretation of studies, communication related to patient care. Time: 30 minutes were spent directly related to patient care exclusive of separately billed procedures. Related Data Home Medications Medication Instructions Recorded Confirmed furosemide 20 mg PO BIDAC #0 07/21/17 09/17/17 spironolactone 100 mg PO QDAY #0 07/21/17 09/17/17 cholecalciferol (vitamin D3) 1 tab PO DAILY 09/10/17 09/17/17 cyanocobalamin (vitamin B-12) 1 tab PO DAILY 09/10/17 09/17/17 Previous Rx's Medication Instructions Recorded omeprazole 20 mg PO Q DAY #90 cap 07/21/17 lactulose 10 gram/15 mL oral 10 gram PO QID #900 ml 09/09/17 solution Allergies Allergy/AdvReac Type Severity Reaction Status Date / Time Penicillins [PENICILLINS] Allergy Unknown PATIENT Verified 09/30/17 18:05 CAN'T REMEMBER I WAS LIKE 6 YEARS OLD. Exam Initial Vital Signs Initial Vital Signs: Vital Signs Temperature 97.9 F 09/30/17 17:59 Pulse Rate 83 09/30/17 17:59 Respiratory Rate 12 09/30/17 17:59 Blood Pressure 114/51 L 09/30/17 17:59 Pulse Oximetry 98 09/30/17 17:59 Course Orders Ordered: ED Orders 09/30/17 18:20 Ammonia (NH3) Stat Complete Blood Count AUTO DIFF Stat Comprehensive Metabolic Panel Stat Creatine Kinase Stat Ethanol (ETOH) Stat Free T4 Free Thyroxine Stat Lactate (Lactic Acid) Stat Lipase Stat Partial Thromboplastin Time Stat Prolactin Stat Prothrombin Time INR Stat Thyroid Stimulating Hormone Stat Troponin I Stat 09/30/17 18:33 CT head/brain wo con Stat XR chest 1V Stat 09/30/17 18:34 Rapid Drug Screen, Urine Stat Urinalysis and Microscopic Stat EKG-12 Lead Stat 09/30/17 19:22 Blood Culture Stat 09/30/17 19:47 Procalcitonin Stat Discontinued Medications Sodium Chloride (Normal Saline 0.9%) 1,000 mls @ 1,000 mls/hr IV BOLUS ONE Stop: 09/30/17 19:38 Vancomycin HCl/Dextrose (Vancomycin) 1,000 mg in 200 mls @ 200 mls/hr 15 mg/kg (1000 mg) IV NOW ONE Stop: 09/30/17 20:22 Last Admin: 09/30/17 19:39 Dose: 200 mls/hr Cefepime HCl 1 gm/ Sodium (Chloride) 100 mls @ 200 mls/hr IV NOW ONE Stop: 09/30/17 19:26 Last Admin: 09/30/17 20:56 Dose: 200 mls/hr Lactulose (Enulose) 20 gm PO NOW ONE Stop: 09/30/17 19:24 Vital Signs - 8 hr 09/30/17 17:59 09/30/17 20:13 Temperature 97.9 F Pulse Rate 83 93 H Respiratory Rate 12 17 Blood Pressure 114/51 L Blood Pressure [Right Wrist] 136/72 H Pulse Oximetry 98 99 MDM - Altered Mental Status Lab Data Result diagrams: 09/30/17 18:20 09/30/17 18:20 Lab Results 09/30/17 09/30/17 09/30/17 Range/Units 18:20 18:20 18:20 WBC 3.4 L (4.5-11.0) X10^3/uL RBC 3.71 L (4.5-5.9) X10^6/uL Hgb 13.3 L (13.5-17.5) g/dL Hct 37.5 L (41-53) % MCV 101.0 H (80-100) fL MCH 35.8 H (26-34) PG MCHC 35.4 (30-36) % RDW 16.0 H (11.6-14.8) % Plt Count 79 L (150-400) X10^3/uL Neut % (Auto) 78.5 H (50-75) % Lymph % (Auto) 10.4 L (25-40) % [place] % (Auto) 10.4 (3-14) % Eos % (Auto) 0.4 L (2-4) % Baso % (Auto) 0.3 (0-2) % Neut # (Auto) 2700 L (6632-3472) /uL PT 21.2 H (10.1-12.7) SECONDS INR 2.0 H (0.9-1.3) APTT 40 H D (26.4-36.2) SECONDS Sodium 133 L (137-145) mmol/L Potassium 4.7 (3.4-5.1) mmol/L Chloride 101 (98-107) mmol/L Carbon Dioxide 22 (22-32) mmol/L BUN 19 (9-20) mg/dL Creatinine 0.80 (0.66-1.25) mg/dL Estimated GFR > 60.0 (>60) mL/min BUN/Creatinine Ratio 23.8 H (6-22) Glucose 162 H (80-110) mg/dL Lactate (0.7-2.1) mmol/L Calcium 8.8 (8.4-10.2) mg/dL Total Bilirubin 6.8 H (0.2-1.3) mg/dL AST 96 H (17-59) IU/L ALT 43 (21-72) IU/L Alkaline Phosphatase 247 H (38-126) U/L Ammonia (9-30) umol/L Total Creatine Kinase (55-170) U/L Troponin I 0.041 H (0.01-0.034) ng/mL Total Protein 8.6 H (6.3-8.2) g/dL Albumin 3.0 L (3.5-5.0) g/dL Globulin 5.6 H (1.7-4.1) g/dL Albumin/Globulin Ratio 0.5 L (1.0-2.8) Lipase 221 (23-300) U/L Procalcitonin (<0.5) ng/mL TSH (0.47-4.68) uIU/mL Free T4 (0.78-2.19) ng/dL Prolactin 14.6 (3.7-17.9) ng/mL Ethyl Alcohol < 10 mg/dL 09/30/17 09/30/17 09/30/17 Range/Units 18:20 18:20 18:20 WBC (4.5-11.0) X10^3/uL RBC (4.5-5.9) X10^6/uL Hgb (13.5-17.5) g/dL Hct (41-53) % MCV (80-100) fL MCH (26-34) PG MCHC (30-36) % RDW (11.6-14.8) % Plt Count (150-400) X10^3/uL Neut % (Auto) (50-75) % Lymph % (Auto) (25-40) % [place] % (Auto) (3-14) % Eos % (Auto) (2-4) % Baso % (Auto) (0-2) % Neut # (Auto) (9736-8310) /uL PT (10.1-12.7) SECONDS INR (0.9-1.3) APTT (26.4-36.2) SECONDS Sodium (137-145) mmol/L Potassium (3.4-5.1) mmol/L Chloride (98-107) mmol/L Carbon Dioxide (22-32) mmol/L BUN (9-20) mg/dL Creatinine (0.66-1.25) mg/dL Estimated GFR (>60) mL/min BUN/Creatinine Ratio (6-22) Glucose (80-110) mg/dL Lactate 3.9 H (0.7-2.1) mmol/L Calcium (8.4-10.2) mg/dL Total Bilirubin (0.2-1.3) mg/dL AST (17-59) IU/L ALT (21-72) IU/L Alkaline Phosphatase (38-126) U/L Ammonia 53.0 H (9-30) umol/L Total Creatine Kinase (55-170) U/L Troponin I (0.01-0.034) ng/mL Total Protein (6.3-8.2) g/dL Albumin (3.5-5.0) g/dL Globulin (1.7-4.1) g/dL Albumin/Globulin Ratio (1.0-2.8) Lipase (23-300) U/L Procalcitonin (<0.5) ng/mL TSH 2.64 (0.47-4.68) uIU/mL Free T4 1.86 (0.78-2.19) ng/dL Prolactin (3.7-17.9) ng/mL Ethyl Alcohol mg/dL 09/30/17 09/30/17 Range/Units 18:20 19:47 WBC (4.5-11.0) X10^3/uL RBC (4.5-5.9) X10^6/uL Hgb (13.5-17.5) g/dL Hct (41-53) % MCV (80-100) fL MCH (26-34) PG MCHC (30-36) % RDW (11.6-14.8) % Plt Count (150-400) X10^3/uL Neut % (Auto) (50-75) % Lymph % (Auto) (25-40) % [place] % (Auto) (3-14) % Eos % (Auto) (2-4) % Baso % (Auto) (0-2) % Neut # (Auto) (7176-7962) /uL PT (10.1-12.7) SECONDS INR (0.9-1.3) APTT (26.4-36.2) SECONDS Sodium (137-145) mmol/L Potassium (3.4-5.1) mmol/L Chloride (98-107) mmol/L Carbon Dioxide (22-32) mmol/L BUN (9-20) mg/dL Creatinine (0.66-1.25) mg/dL Estimated GFR (>60) mL/min BUN/Creatinine Ratio (6-22) Glucose (80-110) mg/dL Lactate (0.7-2.1) mmol/L Calcium (8.4-10.2) mg/dL Total Bilirubin (0.2-1.3) mg/dL AST (17-59) IU/L ALT (21-72) IU/L Alkaline Phosphatase (38-126) U/L Ammonia (9-30) umol/L Total Creatine Kinase 95 (55-170) U/L Troponin I (0.01-0.034) ng/mL Total Protein (6.3-8.2) g/dL Albumin (3.5-5.0) g/dL Globulin (1.7-4.1) g/dL Albumin/Globulin Ratio (1.0-2.8) Lipase (23-300) U/L Procalcitonin 0.90 H (<0.5) ng/mL TSH (0.47-4.68) uIU/mL Free T4 (0.78-2.19) ng/dL Prolactin (3.7-17.9) ng/mL Ethyl Alcohol mg/dL Discharge Plan Departure Prescriptions: No Action furosemide 40 MG tablet 20 mg PO BIDAC Qty: 0 RF: 0 spironolactone 25 MG tablet 100 mg PO QDAY Qty: 0 RF: 0 omeprazole 20 MG capsule,delayed release(DR/EC) 20 mg PO Q DAY Qty: 90 RF: 3 lactulose 10 gram/15 mL solution 10 gram PO QID Qty: 900 RF: 6 cyanocobalamin (vitamin B-12) 1,000 mcg tablet extended release 1 tab PO DAILY RF: 0 cholecalciferol (vitamin D3) 1,000 unit tablet 1 tab PO DAILY RF: 0
[2017-09-30] MEDS: CEFEPIME 1 GM in SODIUM CHLORIDE 0.9% 100 ML 200 ML IV (20:56)
[2017-09-30 21:08] VITALS: BP 151/79; PULSE 76; RESP 14; O2SAT 95
--- NOTE | 2017-09-30 22:07 | PC.NURSE ---
IV antibiotics infusions complete. IV site remains patent and without evidence of infiltration, flushes easily, no redness or signs of infection. IV fluid NS started again at 500 ml/hr there is 500 mls in bag. Lactulose ordered from floor. Awaiting room for admission. patient positions himself for comfort, remains dry and when I asked about needing a urinal he just grunted and rolled over.
[2017-09-30 22:35] LABS: Reflexed Lactate in 2 Hours Y
[2017-09-30 23:09] VITALS: BP 107/62; PULSE 78; RESP 26; O2SAT 96
[2017-09-30] MEDS: LACTULOSE 20 GM/30 ML SOLUTION PO (23:41)
[2017-10-01] VITALS (11 sets, daily range): BP systolic 115–143; BP diastolic 64–81; PULSE 80–101; RESP 14–18; TEMP 36.3–37.4; O2SAT 95–98; BMI 19.7
--- NOTE | 2017-10-01 00:05 | PC.NURSE ---
lab at , assisted to draw lab
--- NOTE | 2017-10-01 00:07 | PC.NURSE ---
second attempt to call report to floor unsuccessful. (first attempt was at [phone])
[2017-10-01 00:18] LABS: Lactate 2HR (Lactic Acid Rflx) 2.2 mmol/L (0.7-2.1)
[2017-10-01 02:09] LABS: Bacteria Urine None Seen
[2017-10-01] MEDS: SODIUM CHLORIDE 0.9% FLUSH 10 ML IV ×3 (02:10→21:16)
[2017-10-01 02:11] LABS: Appearance Urine UA CLEAR; Bilirubin Urine UA NEGATIVE (NEGATIVE); Glucose Urine UA NEGATIVE (Normal); Ketones Urine UA NEGATIVE (NEGATIVE); Leukocyte Esterase Urine UA NEGATIVE (NEGATIVE); Nitrite Urine UA Negative (Negative); Occult Blood Urine UA TRACE-LYSED (Negative); Protein Urine UA NEGATIVE (Negative)
[2017-10-01 02:14] LABS: Color Urine UA Dark Yellow
[2017-10-01 02:17] LABS: RBC Urine 0-1/HPF (0-5/HPF); WBC Urine 0-1/HPF (0-5/HPF)
[2017-10-01 02:18] LABS: Culture Indicated Urine Cult Not Indicated; Urine Tetrahydrocannabinol Negative (Negative)
[2017-10-01 02:19] LABS: Urine Amphetamines Negative (Negative); Urine Barbiturates Negative (Negative); Urine Benzodiazepines Negative (Negative); Urine Cocaine Negative (Negative); Urine MDMA Negative (Negative); Urine Methadone Negative (Negative); Urine Methamphetamines Negative (Negative); Urine Morphine/Opi cutoff 2000 Positive (Negative); Urine Oxycodone Negative (Negative); Urine Phencyclidine Negative (Negative); Urine Tricyclic Antidepressant Negative (Negative)
--- NOTE | 2017-10-01 03:12 | PC.NURSE ---
Pt lethargic, unwilling to answer questions, arouses with verbal stimuli & movement. When asking pt his height, pt responds, what for, then does not give futher information after repeatedly asking. O2 sat 97% on RA, placed on continuous O2 monitoring for now. Pt inc of moderate loose brown BM, barrier cream applied & brief placed on. No inc or urine. Pt has bandaid to RLQ abd CDI. Left forearm skin tears X3 presently covered with tegaderm and draining bloody fluid. Plans to change to non-adherent dressing. PIV S/L'd to MAL, flushes well with brisk blood return. Blood glucose finger stick checked at 0155 for 137. Anthony Wolfe paged at [phone] for admit orders. ER physician called at 0310 to clarify if Telemetry order needed as upon review, EKG was afib and pt has no history of afib. Pt to be placed on Telemetry monitoring. High fall risk precautions in place, bed alarm on, call light within reach, although pt too lethargic to be aware of safety precautions at this time.
--- NOTE | 2017-10-01 09:01 | CM.DANOTE ---
DCP: Assessment: Case received, EMR reviewed. READMIT: noted (pt with a d/c to home on 09/10/17). Pt is a 72 year old male who admitted early this morning 00:53 to care of hospitalist team. Payer: Medicare and [employer] PCP: JOSEPH MEADOWS RN has not yet confirmed admission status: pending Met with pt's KENDRICK Priyanka Kwon/friend and advocate, here this morning to check in with pt and RN and then going to work. (w: [phone] and cell [phone]). DCP template updated with info currently available. Priyanka reports that she has been staying with pt since his d/c from the hospital. She was present at the home when [facility] consents were signed but says that pt had not yet opened pt to service. She was a bit unclear where all of this stood. Agreed to check in with [facility] and to update her accordingly. Spoke with [facility] Kaitlin. She states barrier to full admission to [facility] in the needfor pleurex catheter which allows for home paracentisis as pt is continuing to wish this procedure be ongoing. Hospice physician Dr. Rica Schwartz would like to discuss this with hospitalist. (Dr. Keith's pager # is provided and Dr. Schwartz's cell: [phone] is given to hosptitalist team. P: CM d/c planning team will continue to follow.
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
[2017-10-01] MEDS: DEXTROSE 5%-0.45% NS 1,000 ML 100 ML IV ×2 (13:11→23:45)
[2017-10-01] MEDS: LACTULOSE 20 GM/30 ML SOLUTION 10 GM PO ×3 (13:12→21:14)
[2017-10-01] MEDS: SPIRONOLACTONE 25 MG TABLET PO ×3 (13:12→21:16)
--- NOTE | 2017-10-01 16:50 | PC.NURSE ---
Alison shift note: Sleeping between care, arouses to voice and light touch. Calm, quiet and pleasant. Oriented to self and place only. Follows simple commands, responds to questions and lets needs known. States he feels a bit stronger than this morning as day has progressed. BA and call light within reach.
--- NOTE | 2017-10-01 20:37 | PC.NURSE ---
Patient awake and alert, sleeping between care but easily arousable. BG 352 mg/dL, Dr. Keith paged at this moment.
[2017-10-01] MEDS: INSULIN ASPART 100 UNIT/ML INSULN PEN SUBCUT (22:28)
[2017-10-02] VITALS (12 sets, daily range): BP systolic 110–150; BP diastolic 51–90; PULSE 70–88; RESP 12–20; TEMP 36.3–37.4; O2SAT 85–98
--- NOTE | 2017-10-02 05:11 | PC.NURSE ---
Health Teacher-Pt drowsy, arousable with verbal stimulation. High fall risk precautions in place. IVF infusing well to right upper arm PIV. Left FA allevyn dressings covering skin tears are CDI. BSX4 are hypoactive, abd distended, round, non-tender. Remains on telemetry monitoring, HR slightly irregular at 83bpm. Denies pain, no voiced concerns.
[2017-10-02 06:17] LABS: INR 2.2 (0.9-1.3); Prothrombin Time 24.1 SECONDS (10.1-12.7)
[2017-10-02 06:22] LABS: Alanine Aminotransferase 41 IU/L (21-72); Albumin 1.9 g/dL (3.5-5.0); Albumin Globulin Ratio 0.4 (1.0-2.8); Alkaline Phosphatase 149 U/L (38-126); Aspartate Aminotransferase 69 IU/L (17-59); BUN Creatinine Ratio 25.7 (6-22); Bilirubin Total 4.7 mg/dL (0.2-1.3); Blood Urea Nitrogen 18 mg/dL (9-20); Calcium 7.8 mg/dL (8.4-10.2); Carbon Dioxide 21 mmol/L (22-32); Chloride 107 mmol/L (98-107); Estimated Glomerular Filt Rate > 60.0 mL/min (>60); Globulin 4.5 g/dL (1.7-4.1); Glucose 139 mg/dL (80-110); HEMOLYSIS < 15 (0-50); Magnesium 1.7 mg/dL (1.6-2.3); Potassium 4.3 mmol/L (3.4-5.1); Sodium 132 mmol/L (137-145); Total Protein 6.4 g/dL (6.3-8.2)
[2017-10-02 06:31] LABS: Add Manual Diff / Slide Review NO; Basophils Percent Auto 0.8 % (0-2); Eosinophils Percent Auto 1.6 % (2-4); Hematocrit 29.8 % (41-53); Hemoglobin 10.7 g/dL (13.5-17.5); Lymphocytes Percent Auto 19.9 % (25-40); Mean Corpuscular Hemoglobin 36.2 PG (26-34); Mean Corpuscular Volume 100.6 fL (80-100); Neutrophils Absolute Auto 1800 /uL (3000-5900); Neutrophils Percent Auto 62.7 % (50-75); Red Blood Cell Count 2.96 X10^6/uL (4.5-5.9); White Blood Cell Count 2.8 X10^3/uL (4.5-11.0)
[2017-10-02 06:32] LABS: Platelet Count 59 X10^3/uL (150-400)
[2017-10-02] MEDS: LACTULOSE 20 GM/30 ML SOLUTION 10 GM PO ×4 (08:40→20:25)
[2017-10-02] MEDS: FUROSEMIDE 40 MG TABLET PO (08:40)
[2017-10-02] MEDS: SPIRONOLACTONE 25 MG TABLET PO ×2 (08:40→20:26)
[2017-10-02] MEDS: INSULIN ASPART 100 UNIT/ML INSULN PEN SUBCUT ×2 (08:42→16:46)
[2017-10-02] MEDS: DEXTROSE 5%-0.45% NS 1,000 ML 100 ML IV (09:29)
--- NOTE | 2017-10-02 10:08 | P.PN_ITS ---
Subjective Date Patient Seen: 10/02/17 Time Patient Seen: 09:45 Interval history: Patient is alert today. Exam Vital Signs (past 8 hours): Vital Signs - 8 hr 3 10/02/17 04:17 10/02/17 06:42 10/02/17 08:00 Temperature 98.1 F 97.7 F Pulse Rate 77 78 79 Respiratory Rate 13 16 14 Blood Pressure 150/83 H 135/82 H Pulse Oximetry 95 97 98 3 10/02/17 08:04 Temperature Pulse Rate Respiratory Rate Blood Pressure Pulse Oximetry 95 Pulse Oximetry 95 Oxygen Delivery Method Room Air Oxygen Flow Rate 0 Narrative Exam Narrative: General: Thin elderly man in no acute distress Lungs: Clear to auscultation bilaterally Heart: Regular rhythm, no murmur appreciated Abdomen: Soft, mild distention, no localized tenderness on palpation Extremity: No pitting edema Neuro: Alert and oriented x3 Objective Labs Result Diagrams: 10/02/17 05:52 10/02/17 05:52 Labs: Laboratory Results - last 24 hr 10/02/17 10/02/17 10/02/17 05:52 05:52 05:52 WBC 2.8 L RBC 2.96 L Hgb 10.7 L Hct 29.8 L MCV 100.6 H MCH 36.2 H MCHC 36.0 RDW 17.0 H Plt Count 59 L Neut % (Auto) 62.7 Lymph % (Auto) 19.9 L [place] % (Auto) 15.0 H Eos % (Auto) 1.6 L Baso % (Auto) 0.8 Neut # (Auto) 1800 L PT 24.1 H INR 2.2 H Sodium 132 L Potassium 4.3 Chloride 107 Carbon Dioxide 21 L BUN 18 Creatinine 0.70 Estimated GFR > 60.0 BUN/Creatinine Ratio 25.7 H Glucose 139 H Calcium 7.8 L Magnesium 1.7 Total Bilirubin 4.7 H AST 69 H ALT 41 Alkaline Phosphatase 149 H Total Protein 6.4 Albumin 1.9 L Globulin 4.5 H Albumin/Globulin Ratio 0.4 L Assessment & Plan Plan: Assessment/Plan Narrative: 1. Acute hepatic encephalopathy elevated ammonia level uncertain at whether not he has been taking his medications like the lactulose. He denies skipping his medications. He also was on hydrocodone that he might be playing a role in his mental status changes. Hydrocodone is on hold. Start hospice consultation for home hospice care. We have discussed about catheter placement for palliative paracentesis. Patient does not want to have the procedure done. He has indicated that procedure is too painful. Discontinue IV fluid. Decrease furosemide to 20 mg daily and decrease spironolactone to 25 mg twice a day. Continue monitor him clinically. 2. Hepatocellular carcinoma 3. Disposition: Possible discharge home with home hospice service tomorrow
--- NOTE | 2017-10-02 14:55 | CM.DPC ---
Addendum entered by Radha Kidd 10/02/17 15:01: last discharge note entered by Nikki Zavala RN environmental restoration planner Original Note: Discharge Plan/Cont: Patient seen today, was awake, noted some confusion. Spoke to Hospice, as ordered, and they will be in the home for admission on Friday. Patient will receive hospital bed as well. Patient has declined home paracentesis at this time, and let Hospice know. Gave friendPriyanka, resource information, for she will be hiring someone to help care for patient while he is at home. She is aware of what Hospice does, and their goal to keep patient comfortable. Discharge planning will continue to monitor status of patient, and discharge. Discharge Planning/Care Management CM Discharge Assessment Start: 10/01/17 08:52 Freq: Status: Active Protocol: Document 10/01/17 08:53 ITV (Rec: 10/01/17 09:12 ITV [id number]) Discharge Planning Assessment History Provided By Friend Medical Record Has Patient been admitted in last 30 Yes days? Is this patient on Medicare? Yes Household Members none Type of transporation used prior to Relies on Others admit Comment pt's POA friend Priyanka Kwon has been staying with him to assist since his d/c from hospital 3 weeks ago. She reports this will not be sustainable for her. Independent with ADL's No Is patient alert and oriented? No: cognition fluctuates. Pt with hx of poor insight into his condition and nee Caregiver for Another No Comment [facility] did an info visit at home. Consents were signed but pt continued to go to [facility] for outpt paracentesis every couple of days. [facility] is unable to open pt to service unless he has a pleurtal catheter placed, enabling the procedure to be done at home with [facility] team. Comment . Additional Comment DCP disposition in process.. team will be following. If patient plan is home with home health Yes : Has signed face to face form been completed? 10/01/17 09:01 CM Disch. Assessment Note by Maryjane Fitzpatrick DCP: Assessment: Case received, EMR reviewed. READMIT: noted (pt with a d/c to home on 09/10/17). Pt is a 72 year old male who admitted early this morning 00:53 to care of hospitalist team. Payer: Medicare and [employer] PCP: JOSEPH MEADOWS RN has not yet confirmed admission status: pending Met with pt's POA Priyanka Doyle/friend and advocate, here this morning to check in with pt and RN and then going to work. (w: [phone] and cell [phone]). DCP template updated with info currently available. Priyanka reports that she has been staying with pt since his d/c from the hospital. She was present at the home when [facility] consents were signed but says that pt had not yet opened pt to service. She was a bit unclear where all of this stood. Agreed to check in with [facility] and to update her accordingly. Spoke with [facility] Kaitlin. She states barrier to full admission to [facility] in the needfor pleurex catheter which allows for home paracentisis as pt is continuing to wish this procedure be ongoing. Hospice physician Dr. Rica Schwartz would like to discuss this with hospitalist. (Dr. Keith's pager # is provided and Dr. Schwartz's cell: [phone] is given to hosptitalist team. P: CM d/c planning team will continue to follow. Initialized on 10/01/17 09:01 - END OF NOTE
[2017-10-02] MEDS: SODIUM CHLORIDE 0.9% FLUSH 10 ML IV (20:26)
[2017-10-03] VITALS (9 sets, daily range): BP systolic 116–139; BP diastolic 62–78; PULSE 73–98; RESP 16–19; TEMP 36.4–37.1; O2SAT 96–98
[2017-10-03] MEDS: LACTULOSE 20 GM/30 ML SOLUTION 10 GM PO ×4 (08:26→20:27)
[2017-10-03] MEDS: SODIUM CHLORIDE 0.9% FLUSH 10 ML IV ×2 (08:27→20:27)
[2017-10-03] MEDS: FUROSEMIDE 20 MG TABLET PO (08:27)
[2017-10-03] MEDS: SPIRONOLACTONE 25 MG TABLET PO ×2 (08:27→20:27)
--- NOTE | 2017-10-03 11:01 | PM.DS.1 ---
History of Present Illness Date Patient Seen: 10/03/17 Time Patient Seen: 11:02 Chief complaint: Decreased LOC Narrative: He was found unresponsive in his home on the floor by neighbors. He was last seen approximately 24 hr prior to admission. 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 He recently was seen by Oncology and they suggested palliative care and hospice and he was just starting that process. He is on a schedule of getting paracentesis done every 2 weeks. He was here and thus this hospital about 2 weeks ago with a similar presentation where he was found down unresponsive had a elevated ammonia level and was here for hepatic encephalopathy. Discharge Providers Date of admission: 10/01/17 00:53 Primary care physician: Francy Cornelius PA-C Consults: 10/01/17 02:56 Consult to Dietitian, Adult Routine Comment: Reason For Exam: malnourished, HX Hepatocellular Cancer 10/02/17 10:01 Consult to Hospice Referral Routine Comment: Discharge provider: PETERSON Wheat Summary Discharge Diagnosis: 1. Acute hepatic encephalopathy 2. Hepatocellular carcinoma metastatic Hospital Course: This is a summary of a 3 day hospitalization for this patient was admitted on the 30 of September through the emergency department who presented with altered mental status and severe exacerbation of the acute hepatic encephalopathy. His ammonia level in the emergency department was 53. His head CT showed no intracranial bleeds or masses. Chest x-ray showed no acute process. He was continued on his lactulose and clinically improved significantly overnight. We have discussed catheter placement for palliative paracentesis. He does not wish to have any more abdominal paracentesis to relieve his abdominal ascites. He is currently awake alert and oriented desires to go home. He is ambulating in the hallway with minimal assistance. Oncology will continue to follow him as needed. Hospice has been set up for him and will take over managing his care starting on Friday. Status at Discharge Functional status at discharge: uses cane/walker Overall status at discharge: patient is back to baseline Time Spent with Patient Greater than 30 minutes Exam Vital Signs (past 8 hours): Vital Signs - 8 hr 10/03/17 04:49 10/03/17 08:00 10/03/17 08:08 Temperature 98.0 F 97.5 F L Pulse Rate 98 H 80 Respiratory Rate 19 16 Blood Pressure 120/63 122/69 H Pulse Oximetry 98 96 96 Pulse Oximetry 96 Oxygen Delivery Method Room Air Oxygen Flow Rate 4 Const General: cooperative, comfortable and frail appearing Nutritional Appearance: cachectic Orientation: alert, awake and oriented x3 [facility] Head: normocephalic and atraumatic Eyes General: appearance normal, both eyes and all related structures Pupils: PERRL and pupil size bilaterally 2.0 Neck Other: Exam unremarkable. No neck vein distention or lymphadenopathy. Chest Chest: normal inspection of the chest Resp Effort & Inspection: normal respiratory effort and able to speak in complete sentences Other: Bibasilar rales. Cardio Heart Sounds: S1 normal and S2 normal Other: Slightly irregular rhythm. Telemetry reveals normal sinus rhythm with occasional PACs and rare PVCs. GI Palpation: soft and ascites Auscultation: normal bowel sounds Other: Urine is dark kala. Voiding without dysuria Back/Spine/Pelvis Other: Unremarkable exam Skin General: no rashes or lesions noted, dry skin and warm Neuro General: alert, awake and oriented x3 Cognition: normal cognition Speech: speech normal Motor: muscle tone normal throughout Sensory Exam: no sensory deficits noted Extrem General: normal to inspection Other: No edema, capillary refill within normal limits, good pedal pulses bilaterally. Psych Appearance: grossly normal Speech and Movement: speech and movement normal Mood: congruent mood Affect: normal affect Attitude: cooperative Thought Process: normal Thought Content: normal Judgment: judgment good Objective Labs Result Diagrams: 10/02/17 05:52 10/02/17 05:52 Discharge Plan Discharge Med Rec/Prescriptions Prescriptions: No Action furosemide 40 MG tablet 40 mg PO DAILY Qty: 0 RF: 0 spironolactone 25 MG tablet 25 mg PO QID Qty: 0 RF: 0 omeprazole 20 MG capsule,delayed release(DR/EC) 20 mg PO Q DAY Qty: 90 RF: 3 lactulose 10 gram/15 mL solution 10 gram PO QID Qty: 900 RF: 6 cyanocobalamin (vitamin B-12) 1,000 mcg tablet extended release 1 tab PO DAILY RF: 0 cholecalciferol (vitamin D3) 1,000 unit tablet 1 tab PO DAILY RF: 0 hydrocodone-acetaminophen [[place]] 5-325 mg Tablet 1 tab PO Q6H RF: 0 milk thistle 140 mg Capsule 1 tab/day DAILY RF: 0 Discharge Data Primary Care Provider: Francy Cornelius Attending Provider: Dimple Rodriguez Admfatou Date/Time: 10/01/17 00:53
--- NOTE | 2017-10-03 11:25 | P.PN_ITS ---
Subjective Date Patient Seen: 10/03/17 Time Patient Seen: 11:19 Interval history: Patient is sitting in the bed at this point in time in no acute distress. He says he has markedly improved since yesterday. This thought process is much clearer. Exam Vital Signs (past 8 hours): Vital Signs - 8 hr 3 10/03/17 04:49 10/03/17 08:00 10/03/17 08:08 Temperature 98.0 F 97.5 F L Pulse Rate 98 H 80 Respiratory Rate 19 16 Blood Pressure 120/63 122/69 H Pulse Oximetry 98 96 96 Pulse Oximetry 96 Oxygen Delivery Method Room Air Oxygen Flow Rate 4 Narrative Exam Narrative: General: cooperative, comfortable and frail appearing Nutritional Appearance: cachectic Orientation: alert, awake and oriented x3 HEN[facility] Head: normocephalic and atraumatic Eyes General: appearance normal, both eyes and all related structures Pupils: PERRL and pupil size bilaterally 2.0 Neck Other: Exam unremarkable. No neck vein distention or lymphadenopathy. Chest Chest: normal inspection of the chest Resp Effort & Inspection: normal respiratory effort and able to speak in complete sentences Other: Bibasilar rales. Cardio Heart Sounds: S1 normal and S2 normal Other: Slightly irregular rhythm. Telemetry reveals normal sinus rhythm with occasional PACs and rare PVCs. GI Palpation: soft and ascites Auscultation: normal bowel sounds Other: Urine is dark kala. Voiding without dysuria Back/Spine/Pelvis Other: Unremarkable exam Skin General: no rashes or lesions noted, dry skin and warm Neuro General: alert, awake and oriented x3 Cognition: normal cognition Speech: speech normal Motor: muscle tone normal throughout Sensory Exam: no sensory deficits noted Extrem General: normal to inspection Other: No edema, capillary refill within normal limits, good pedal pulses bilaterally. Psych Appearance: grossly normal Speech and Movement: speech and movement normal Mood: congruent mood Affect: normal affect Attitude: cooperative Thought Process: normal Thought Content: normal Judgment: judgment good Objective Labs Result Diagrams: 10/02/17 05:52 10/02/17 05:52 Assessment & Plan Plan: Assessment/Plan Narrative: 1. Acute hepatic encephalopathy with an ammonia level of 53 in the emergency department. It is unclear whether not he has been taking his medications like the lactulose. He denies skipping his medications. He also was on hydrocodone that he might be playing a role in his mental status changes. Hydrocodone is currently on hold. Hospice care will be available starting Friday of this week. He is not able to go home today as his house is being refit for a new bed from hospice. We have discussed about catheter placement for palliative paracentesis. Patient does not want to have the procedure done. He has indicated that procedure is too painful. IV fluids have been stopped. We have decreased furosemide to 20 mg daily and decrease spironolactone to 25 mg twice a day. Continue monitor him clinically. DC telemetry. 2. Hepatocellular carcinoma will be followed by Oncology. 3. Disposition: Probable discharge home with home hospice service tomorrow.
--- NOTE | 2017-10-03 11:37 | PC.NURSE ---
Day shift: Pt stated that he really wants to go home today. This press writer stated that it would be better if he stayed here tonight. Pt still wanted to go home. Pt's friend Becca called and told the Pt that he needs to stay here one more night. Pt is now ok w/ staying here another night. and EVONNE aware of this now as well. Call light in reach.
--- NOTE | 2017-10-03 13:59 | PC.NURSE ---
Day shift: Per Maximo Villavicencio verbal OK to d/c tele.
--- NOTE | 2017-10-03 16:28 | CM.DPC ---
NJP Ongoing Assessment: 10/03/17 Case reviewed, EMR reviewed and discussed case with PETERSON Velasquez and floor nurse Huey. Did not meet with patient or family today. Discussed plan to have patient discharge today or tomorrow and Hospice to do SOC in pt home on Friday. Both agreed that patient would best be discharged tomorrow, as Hospice equipment is likely to arrive in home later today and family needs prep time with this. Other health care agencies used: Received call from Day at Hospice and confirmed that patient will be discharged tomorrow with SOC planned at patient home on Friday. Hospital bed is to arrive in patient home later this afternoon, so Friday d/c is best. Day had recently spoken with KENDRICK Mathew about these arrangements, so [facility] did not make a call to Priyanka today. Plan: Discharge to home on Friday, 10/04, with Hospice to open case on Friday. To do: Follow d/c tomorrow. Call and confirm all with KENDRICK Mathew on Friday. FAX d/c Summary to Hospice , and call to confirm if any other any d/c paperwork or reports that may be needed. Dixie Gaspar, CALLY
[2017-10-03] MEDS: INSULIN ASPART 100 UNIT/ML INSULN PEN SUBCUT (16:53)
[2017-10-04 00:10] VITALS: O2SAT 97
[2017-10-04 03:00] VITALS: BP 143/73; PULSE 72; RESP 17; TEMP 36.7; O2SAT 99
[2017-10-04 07:40] VITALS: BP 117/73; PULSE 94; RESP 18; TEMP 36.4; O2SAT 97
[2017-10-04] MEDS: FUROSEMIDE 20 MG TABLET PO (08:56)
[2017-10-04] MEDS: LACTULOSE 20 GM/30 ML SOLUTION 10 GM PO (08:56)
[2017-10-04] MEDS: SPIRONOLACTONE 25 MG TABLET PO (08:56)
[2017-10-04] MEDS: SODIUM CHLORIDE 0.9% FLUSH 10 ML IV (08:58)
--- NOTE | 2017-10-04 11:11 | PM.DS.1 ---
History of Present Illness Chief complaint: Decreased LOC Narrative: He was found unresponsive in his home on the floor by neighbors. He was last seen approximately 24 hr prior to admission. 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 He recently was seen by Oncology and they suggested palliative care and hospice and he was just starting that process. He is on a schedule of getting paracentesis done every 2 weeks. He was here and thus this hospital about 2 weeks ago with a similar presentation where he was found down unresponsive had a elevated ammonia level and was here for hepatic encephalopathy. Discharge Providers Date of admission: 10/01/17 00:53 Primary care physician: Francy Cornelius PA-C Consults: 10/01/17 02:56 Consult to Dietitian, Adult Routine Comment: Reason For Exam: malnourished, HX Hepatocellular Cancer 10/02/17 10:01 Consult to Hospice Referral Routine Comment: Discharge provider: Cornelio Keith MD Summary Discharge Diagnosis: One. Acute hepatic encephalopathy 2. Hepatocellular carcinoma Hospital Course: Patient admitted to the hospital after being found unresponsive by friends and neighbors. It was felt that he had exacerbation of his hepatic encephalopathy acute episode possibly from noncompliance possibly exacerbated by hydrocodone. The patient was treated with lactulose initially by enema and then by oral as he will as he woke up. We have made arrangements for hospice the patient is trending to start hospice and wanted to not do any active therapy. We also talked to him about possibly putting in a catheter into the abdomen for ease of paracentesis however he declined that option. He does have significant ascites but not needing a tap at this time. He has been getting them about every 2 weeks or so. He will remain on the spironolactone and Lasix for now. He will be followed by hospice and by his primary care. Status at Discharge Cognitive/behavioral status at discharge: A cognitive status back to baseline Overall status at discharge: patient is back to baseline Time Spent with Patient Greater than 30 minutes Exam Vital Signs (past 8 hours): - 10/04/17 07:40 Temperature 97.6 F Pulse Rate 94 H Respiratory Rate 18 Blood Pressure 117/73 Pulse Oximetry 97 Oxygen Delivery Method Room Air Oxygen Flow Rate 0 Narrative Exam Narrative: He is sitting up in a chair is awake alert he is conversant appears to be back to his baseline Objective Labs Result Diagrams: 10/02/17 05:52 10/02/17 05:52 Discharge Plan Discharge Plan Patient Disposition: Hospice - Home Discharge Med Rec/Prescriptions Prescriptions: Continue furosemide 40 MG tablet 40 mg PO DAILY Qty: 0 RF: 0 spironolactone 25 MG tablet 25 mg PO QID Qty: 0 RF: 0 omeprazole 20 MG capsule,delayed release(DR/EC) 20 mg PO Q DAY Qty: 90 RF: 3 lactulose 10 gram/15 mL solution 10 gram PO QID Qty: 900 RF: 6 cyanocobalamin (vitamin B-12) 1,000 mcg tablet extended release 1 tab PO DAILY RF: 0 cholecalciferol (vitamin D3) 1,000 unit tablet 1 tab PO DAILY RF: 0 milk thistle 140 mg Capsule 1 tab/day DAILY RF: 0 Discontinued hydrocodone-acetaminophen [[place]] 5-325 mg Tablet 1 tab PO Q6H RF: 0 Discharge Orders: Discharge (Order); Ordered 10/04/17 Ordered By: Cornelio Keith Provider Discharge Instructions Diet: Diet as Tolerated and Low-sodium Discharge Data Primary Care Provider: Francy Cornelius Attending Provider: Dimple Rodriguez Admit Date/Time: 10/01/17 00:53
--- NOTE | 2017-10-04 11:37 | CM.DPC ---
Addendum entered by Maryjane Fitzpatrick LPN 10/04/17 12:01: DC summary faxed now to Emily/NORMA as per her request. Original Note: DCP: case received, EMR reviewed and spoke with [facility] Emily. She confirmed that [facility] RN would see pt tomorrow at his home between 1000 and 1100. She also accessed notes that did show a discussion between Dr. Pa and Dr. Rica Schwartz re the options for paracentecis and with pt making ultimate decision to not continue that palliative treatment any longer. Called KENDRICK Kwon who confirms above. She is aware that d/c planned for today and feels that all is set up for same. She notes pt is very eager to get home and that his friend Jasen will pick him up (now set for 1400). She confirms that [facility] DME was delivered and is all set up. She has caregivers hired to be with pt. She will be part of the [facility] open to service visit tomorrow. Checked in now with pt and updated CALLY Tillman. Pt is organizing his belongings in prep for home. Spoke the Dr. Keith to update him. He confirms he has just finalized the d/c paperwork. P: home today, pvt vehicle, 04/11 care. [facility] to open tomorrow at between 1000 and 1100.
--- NOTE | 2017-10-04 12:54 | PC.NURSE ---
reviewed discharge instrutions and med rec with patient, patient states understanding and has no further questions or concerns at this time. iv has been dc'd intact. 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 Patient denies pain or other complaint, tolerating meals, ambulating with SB assistance, pleasant and talkative and eager to go home. Patient will follow up with PCP as needed, and is arranged for hospice care at home.
== END 2017-10-04 14:21 | disposition home or self-care (01) | DRG 442 ==
LOC: ED 21:06 → AC 10-01 00:53
PROVIDERS: Internal Medicine; Admitting Provider Internal Medicine; Emergency Provider Emergency Medicine; PCP Physician Assistant; Visit Provider Internal Medicine
DX: K72.00 Acute and subacute hepatic failure without coma (principal); C22.0 Liver cell carcinoma; R18.8 Other ascites; B19.20 Unspecified viral hepatitis C without hepatic coma; Z51.5 Encounter for palliative care; I48.91 Unspecified atrial fibrillation
CPT/HCPCS: 36415; 36591; 70450; 71045; 80053; 80305; 80320; 81001; 82140; 82550; 82962; 83605; 83690; 83735; 84145; 84146; 84439; 84443; 84484; 85025; 85610; 85730; 87040; 93005; 93010; 96365; 96367; 99284; 99285; J0692; J3370